=== PATIENT | female | born 1955 | race Caucasian/White ===

== ENCOUNTER 2019-01-12 01:22 | Emergency (ER) | payer OTHER ==
[2019-01-12 02:27] LABS: #Basophils 0.1 thou/uL (0.0-0.2); #Eosinphils 0.2 thou/uL (0.0-0.7); #Lymphocytes 1.7 thou/uL (1.20-3.40); #Monocytes 0.7 thou/uL (0.11-0.59); #Neutrophils 7.3 thou/uL (1.40-6.50); %Basophils 0.7 % (0.0-1.0); %Eosinophils 1.8 % (0.0-10.0); %Lymphocytes 17.2 % (21.0-51.0); %Monocytes 7.4 % (0.0-10.0); %Neutrophils 72.9 % (42.0-75.0); Mean Corpuscular HGB CONC 34.9 g/dL (32.0-36.0); Mean Corpuscular Hemoglobin 32.8 pg (27.0-31.0); Mean Corpuscular Volume 93.8 fL (78.0-98.0); Mean Platelet Volume 7.3 fL (7.4-10.4); Platelet Count 238 thou/uL (130-400); RBC Distribution Width 11.9 % (11.5-14.5); Red Blood Cell (RBC) Count 5.18 mill/uL (4.20-5.40)
[2019-01-12 02:46] LABS: ALT (SGPT) 15 U/L (8-55); AST (SGOT) 18 U/L (5-34); Albumin 4.5 g/dL (3.4-4.8); Alkaline Phosphatase 74 U/L (40-150); Anion Gap 13 mmol/L (10-20); BUN (Urea Nitrogen) 19 mg/dL (9.8-20.1); Bilirubin, Total 0.5 mg/dL (0.2-1.2); Calc. Creatinine Clearance 0 mL/min (70-130); Carbon Dioxide 25 mmol/L (23-31); Chloride 103 mmol/L (98-107); Estimated GFR-MDRD 83; Glucose 123 mg/dL (80-115); Potassium 4.3 mmol/L (3.5-5.1); Protein, Total 7.5 g/dL (6.0-8.3); Sodium 137 mmol/L (136-145)
[2019-01-12] MEDS ORDERED: Fentanyl 100 MCG/2 ML VIAL ONE ×2 (04:21→06:04)
[2019-01-12] MEDS ORDERED: Famotidine/PF 20 mg/2ml Vial ONE (04:22)
[2019-01-12] MEDS ORDERED: methylPREDNISolone Sod Succ/PF 125 MG/2 ML VIAL ONE (04:22)
[2019-01-12] MEDS ORDERED: diphenhydrAMINE 50 MG/ML VIAL ONE (04:22)
[2019-01-12] MEDS ORDERED: Ketorolac Tromethamine 30 MG/ML VIAL ONE (07:08)
--- NOTE | 2019-01-12 08:11 | ULT ---
PRELIMINARY REPORT/[facility]/EMERGENCY AFTER HOURS PROCEDURE: EXAM: US Duplex Right Lower Extremity Veins, Limited EXAM DATE/TIME: 01/12/2019 2:18 AM CLINICAL HISTORY: 63 years old, female; Pain; Leg, upper; Right TECHNIQUE: Imaging protocol: Real-time Duplex ultrasound of the Right Lower Extremity with 2-D sims scale, color Doppler flow and spectral waveform analysis. Limited exam was focused on the right lower extremity veins. COMPARISON: No relevant prior studies available. FINDINGS: Right deep veins: Unremarkable. The common femoral, femoral, proximal profunda femoral and popliteal veins are patent without thrombus. Normal Doppler waveforms. Normal compressibility and/or augmentation response. Right superficial veins: Unremarkable. Saphenofemoral junction is patent without thrombus. Soft tissues: Unremarkable. IMPRESSION: No acute findings. No evidence of deep vein thrombosis. Thank you for allowing us to participate in the care of your patient. Dictated and Authenticated by: Dash Miles MD 01/12/2019 3:09 AM Central Time ([place] & [place]) FINAL REPORT EMERGENCY AFTER HOURS RIGHT LOWER EXTREMITY VENOUS DOPPLER ULTRASOUND: HISTORY: Right lower extremity pain. TECHNIQUE: Multiple longitudinal and transverse images of the right lower extremity venous systems obtained usin g multi hertz linear array transducer. Real-time, color flow and spectral waveform Doppler analysis used to evaluate the right lower extremity venous system. FINDINGS: Images demonstrate no evidence of acute or old clot seen in the right common femoral, superficial fem oral, femoral profunda, popliteal, posterior tibial veins and right greater saphenous vein. IMPRESSION: No evidence of right lower extremity deep venous thrombosis. I concur with the dictation from [facility]. Transcribed Date/Time: 01/12/2019 8:38 AM
--- NOTE | 2019-01-12 08:39 | CT ---
CTA ABDOMEN AND PELVIS WITH CONTRAST AND 3D VOLUME RENDERING CTA RUNOFF OF BILATERAL LOWER EXTREMITIES WITH 3D VOLUME RENDERING: CLINICAL INDICATION: History of vascular disease, bypass surgery, clot. COMPARISON: Reference is made to 01/08/2017 CTA exam. FINDINGS: Partially imaged right-sided bypass is present which traverses the subcutaneous tissues of the right chest and abdomen, and is anastomosed at the right femoral vasculature. At the site of anastomosis, there is a prominent degree of stenosis with minimal contrast opacification seen. Subsequently, with in the right superficial femoral artery, there is contrast opacification with multifocal mild disease . The right popliteal artery is patent. Evaluation of the 3-vessel runoff below the level of the kn ee reveals scattered mild multifocal disease, with contrast seen to the level of the high ankle. The distal arterial structures are diminutive in caliber which does limit their assessment. As has been depicted on prior CTA, there is complete occlusion of the abdominal aorta just inferior t o the level of the renal arteries with diffuse absence of contrast to the level of the bifurcation, w ith absence of contrast within each common iliac artery. There is reconstituted flow of the right ex ternal iliac arteries. There is an absence of contrast of the left internal and external iliac arter ies and contrast is again seen within the left lower extremity beginning at the site of anastomosis n ear the expected origin of the left superficial femoral artery. The superficial femoral artery is pa tent within the mid to proximal side. at the level of the distal thigh, there are multiple small col lateralized vessels with subsequent opacification and then reconstitution at the level of the poplite al artery which is mildly diseased. There are diminutive arterial branches below the level of the le ft knee with faint contrast seen to the distal 1/3 of the leg within the anterior tibial and peroneal arteries and contrast seen to the level of the ankle within the posterior tibial artery. The incidentally imaged descending thoracic aorta again reveals a multifocal calcified and noncalcifi ed plaque, grossly stable. IMPRESSION: 1. 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 There is a prominent st enosis at the level of anastomosis within the right femoral region. Subsequently, there is mild mult ifocal disease of the right lower extremity as discussed above. 2. Multifocal disease of the left lower extremity as detailed above. POS: SCOTTY
[2019-01-12] MEDS ORDERED: ISOVUE-370 76%-LOCM 1 ML ONE (16:57)
== END 2019-01-12 07:10 | disposition home or self-care (01) ==
LOC: ERS 01:22
DX: I73.9 Peripheral vascular disease, unspecified (principal); I10 Essential (primary) hypertension; E78.5 Hyperlipidemia, unspecified; Z86.718 Personal history of other venous thrombosis and embolism; Z79.82 Long term (current) use of aspirin; Z79.899 Other long term (current) drug therapy
CPT/HCPCS: 36415; 75635; 80053; 85025; 85379; 93005; 96374; 96375; 96376; J1200; J1885; J2930; J3010; Q9966; S0028

== ENCOUNTER 2019-03-03 15:57 | Inpatient (IN) | payer OTHER ==
[~2019-03-03 15:57] MED LIST: Glycopyrrolate 0.2 MG/ML 5 ML SYRINGE ONE; Heparin 10,000 UNITS/ 10 ML VIAL ONE; Ondansetron PF 4 MG/2 ML Vial ONE; Rocuronium Bromide 10 MG/ML (10ML VIAL) ONE; Succinylcholine Chloride 20 MG/ML 10 ml SYRINGE FS ONE; ePHEDrine 50 MG/ML VIAL ONE
[2019-03-03] MEDS ORDERED: Fentanyl 100 MCG/2 ML VIAL ONE ×3 (16:10→17:32)
[2019-03-03] MEDS ORDERED: diphenhydrAMINE 50 MG/ML VIAL ONE (16:17)
[2019-03-03] MEDS ORDERED: methylPREDNISolone Sod Succ/PF 125 MG/2 ML VIAL ONE (16:17)
[2019-03-03] MEDS ORDERED: Famotidine/PF 20 mg/2ml Vial ONE (16:17)
[2019-03-03 16:31] LABS: #Basophils 0.1 thou/uL (0.0-0.2); #Eosinphils 0.3 thou/uL (0.0-0.7); #Lymphocytes 3.4 thou/uL (1.20-3.40); #Monocytes 0.7 thou/uL (0.11-0.59); #Neutrophils 4.9 thou/uL (1.40-6.50); %Basophils 0.6 % (0.0-1.0); %Eosinophils 3.3 % (0.0-10.0); %Lymphocytes 36.3 % (21.0-51.0); %Monocytes 7.5 % (0.0-10.0); %Neutrophils 52.3 % (42.0-75.0); Mean Corpuscular HGB CONC 34.8 g/dL (32.0-36.0); Mean Platelet Volume 7.2 fL (7.4-10.4); Platelet Count 297 thou/uL (130-400); RBC Distribution Width 11.8 % (11.5-14.5); Red Blood Cell (RBC) Count 5.61 mill/uL (4.20-5.40); White Blood Cell (WBC) Count 9.3 thou/uL (4.8-10.8)
[2019-03-03 16:38] LABS: Prothrombin Time 13.1 SEC (12.0-14.7)
--- NOTE | 2019-03-03 16:55 | RAD ---
PORTABLE CHEST 1 VIEW: Date; 03/03/19 Time: 1651 hours HISTORY: Pain in right leg. FINDINGS: Comparison made with exam of 01/28/11. The heart size is normal. The aorta is tortuous. The lungs are expanded without focal areas of consol idation, pneumothoraces, or pleural effusions. Surgical clips in the right upper outer chest are agai n seen. IMPRESSION: No radiographic evidence of acute cardiopulmonary process. POS: OFF
[2019-03-03 16:56] LABS: ALT (SGPT) 15 U/L (8-55); AST (SGOT) 15 U/L (5-34); Albumin 4.5 g/dL (3.4-4.8); Alkaline Phosphatase 86 U/L (40-150); Anion Gap 20 mmol/L (10-20); BUN (Urea Nitrogen) 11 mg/dL (9.8-20.1); Bilirubin, Total 0.5 mg/dL (0.2-1.2); CK (CPK) 66 U/L (29-168); Calc. Creatinine Clearance 0 mL/min (70-130); Calcium 10.1 mg/dL (7.8-10.44); Carbon Dioxide 17 mmol/L (23-31); Chloride 103 mmol/L (98-107); Estimated GFR-MDRD 75; Globulin 3.2 g/dL (2.4-3.5); Glucose 137 mg/dL (80-115); Potassium 3.4 mmol/L (3.5-5.1); Protein, Total 7.7 g/dL (6.0-8.3); Sodium 137 mmol/L (136-145)
[2019-03-03] MEDS ORDERED: Midazolam HCl 2 mg/2 ml Vial ONE ×2 (17:20→17:32)
[2019-03-03] MEDS ORDERED: Protamine Sulfate 50 MG/5 ML VIAL ONE (17:24)
[2019-03-03] MEDS ORDERED: Heparin 5,000 UNITS/ML VIAL ONE (17:24)
[2019-03-03] MEDS ORDERED: Heparin 10,000 UNITS/1 ML VIAL 30,000 UNITS in Sodium Chloride 0.9% 1,000 ML FS SCH (17:30)
[2019-03-03] MEDS ORDERED: CEFAZOLIN 1 GM VIAL ONE (20:00)
[2019-03-03] MEDS ORDERED: Ondansetron PF 4 MG/2 ML Vial IVP PRN (22:36)
[2019-03-03] MEDS ORDERED: Fentanyl 100 MCG/2 ML VIAL SLOW IVP PRN ×2 (22:36)
[2019-03-03] MEDS ORDERED: Acetaminophen 325 MG TAB PO PRN (22:36)
[2019-03-03] MEDS ORDERED: HYDROcodone/Acetaminophen 5/325 mg Tablet PO PRN (22:36)
[2019-03-03] MEDS ORDERED: Promethazine HCl 25 MG/ML VIAL SLOW IVP PRN (22:48)
[2019-03-03] MEDS ORDERED: Ondansetron HCl/PF 4 MG/2 ML Vial IVP PRN (22:48)
[2019-03-03] MEDS ORDERED: Promethazine HCl 25 MG/ML VIAL IM PRN (22:48)
--- NOTE | 2019-03-03 23:00 | RAD ---
Chest one view HISTORY: Line placement. COMPARISON: Earlier exam on the same date. FINDINGS: Tip of a left internal jugular central venous catheter overlies the superior vena cava. Med iastinum is midline with aortic calcification. [place] is partially obscured by ill-defined parenchymal opacity. No evidence of pneumothorax. Metallic clips over the right upper chest. IMPRESSION: Left internal jugular central venous catheter is in good radiographic position. Right basilar infiltrate, partially obscuring the right hemidiaphragm.
[2019-03-03] MEDS ORDERED: ceFAZolin 1 GM/D5W 1 GM in Premix Bag 1 BAG IVPB SCH (23:45)
[2019-03-04] MEDS: Ketorolac Tromethamine 30 MG/ML VIAL IVP SCH ×4 (00:54→18:06)
[2019-03-04] MEDS: Sodium Chloride 0.9% 1,000 ML IV SCH ×2 (00:55→12:29)
--- NOTE | 2019-03-04 02:35 | HP ---
CHIEF COMPLAINT: Right leg pain. HISTORY OF PRESENT ILLNESS: The patient is a 63-year-old woman with extensive vascular history, who about a month ago began claudicating again, and then today had sudden onset of excruciating pain in her right lower extremity. Her right leg went pale and she presented to the emergency room essentially right away and her leg was already beginning to mottle during her initial interview. PAST MEDICAL HISTORY: Significant for hypercholesterolemia, perforated sigmoid diverticulitis, remote history of TIA manifested as dysarthria. Her peripheral vascular history is notable for initially undergoing right axillobifemoral graft in 08/2010 in lieu of an aortobifemoral graft because of the presence of a colostomy following a Renay's procedure for perforated diverticulitis. In October of 2010, the graft thrombosed and she underwent graft thrombectomy and left femoral popliteal bypass, but in November due to infection, the crossover limb and the left femoral-popliteal grafts were removed. In August 2012, she underwent thrombectomy of the graft, and by report of below-knee right femoral-popliteal bypass. In January of 2017, she underwent brachial thromboembolectomy, and just a few days later, underwent graft thrombectomy and revision of the distal anastomosis taking the patch down onto the SFA. HOME MEDICATIONS: 1. Zocor 80 mg a day. 2. Baby aspirin a day. 3. Plavix 75 mg a day. 4. She is chronically maintained on Augmentin. SOCIAL HISTORY: She quit smoking. REVIEW OF SYSTEMS: Negative for any chest pain. PHYSICAL EXAMINATION: GENERAL: She is in extreme distress due to pain and having difficult time even holding stool. VITAL SIGNS: Heart rate 74, blood pressure 166/79, temperature 97.6. CHEST: She has clear breath sounds. HEART: Regular rate and rhythm. EXTREMITIES: No pulse in her axillofemoral graft. No pulse in either groin. Her left foot is pink and fairly warm. Her right lower extremity is quite pale with dusky nail beds and flat veins in the feet and she is beginning to mottle in the thigh. LABORATORY DATA: CT angiography from January suggests a thrombosis of the axillofemoral graft at that time with stenosis at the common femoral bifurcation on the right side. IMPRESSION AND PLAN: Acute ischemia. We anticipate that if her graft has really been thrombosed for about a month and it is on the order of 7 years old that it is apt to just simply need to be replaced rather than thrombectomized. Job ID: [id number]
[2019-03-04 02:45] VITALS: BMI 26.9
--- NOTE | 2019-03-04 03:51 | OP ---
DATE OF PROCEDURE: 03/03/2019 PROCEDURE PERFORMED: Emergent redo right axillofemoral bypass with 8 mm externally reinforced [place] Propaten graft, bovine pericardial patch profundoplasty, and femoral thrombectomy. PREOPERATIVE DIAGNOSIS: Peripheral vascular disease, status post right axillofemoral bypass with acutely ischemic right lower extremity. POSTOPERATIVE DIAGNOSIS: Peripheral vascular disease, status post right axillofemoral bypass with acutely ischemic right lower extremity. ANESTHESIA: General endotracheal anesthesia. INDICATIONS: The patient is a 63-year-old woman with an infrarenal aortic occlusion, who several years ago in the face of a recent Renay's procedure, underwent revascularization in the form of right axillobifemoral graft to crossover limb and a femoral-popliteal graft done on the left side at the time of graft thrombectomy, had to be removed because of infection, and she has had thrombectomies and revisions of her right axillofemoral graft. She began to claudicate again about a month ago, and today she developed sudden onset of excruciating pain with clinical findings consistent with ischemia. FINDINGS: Thrombosed graft, extensive amount of thrombus within the SFA, combination of plaque and pseudo intimal hyperplasia occluding the profunda. Postoperatively, the foot was pink with good capillary refill and a Doppler pulse in the posterior tibial. NARRATIVE REPORT: After informed consent was obtained, the patient was taken to the operating room, placed in supine position on the operating table. After the induction of general anesthesia and placement of left internal jugular line by the anesthesiologist, rolls were placed transversely under the shoulder and longitudinally under the right side and the patient's right arm was tucked. Her torso, groins, and lower extremities were prepped and draped in sterile fashion. An incision was made sharply through the scar in the right groin and the electrocautery was used to carry that dissection through the subcutaneous tissue. The graft was identified and the dissection was carried down onto the SFA. An extensive sharp dissection was undertaken to isolate the graft in the common femoral artery as much as feasible and then to dissect down, identify the superficial femoral and the profunda branches. When that had been accomplished, an incision was made through the previous right upper chest incision. The fibers of the pectoralis were divided along the course of the fibers, and a combination of sharp and electrocautery dissection was used to expose the graft and the axillary artery, dissecting the axillary and subclavian veins off the artery to allow for adequate proximal control. The patient was heparinized, and while heparin circulated, a tunneling device was passed deep to the pectoralis musculature down to the groin and an 8 mm externally reinforced [place] Propaten graft was passed from the groin up to the axillary incision. Proximal and distal control was established on the graft in the groin as well as the united [place] vasculature. A longitudinal graftotomy was made in the londono of the graft and local thrombus was extracted with a [place], communication with the profunda could not be identified. The profunda was separately opened with an 11 blade scalpel and that arteriotomy extended up onto the londono of the graft at its graftotomy. Probing the profunda is possible to identify the tract of the profunda up to the common femoral, and an 11 blade scalpel was used to open it. A large bovine pericardial patch was then tailored in a teardrop fashion and anastomosed taking the tip down onto the profunda and then around onto the origin of the SFA that had been thrombectomized with a #4 Madhu and then up to the proximal apex on the graft londono. The patch was then tailored and the suture line completed along the lateral aspect. Back bleeding was allowed from the profunda and the thrombectomized SFA. Attention was then turned to the axillary artery. It was isolated and the anterior portion of the suture line of the previous anastomosis was opened. The graft was trimmed and beveled, and anastomosed there end-to-side. The united [place] artery was rather friable and tended to dissect, the suture line was run in such a manner as to tack together the layers of the [place] vessel. The graft flushed well and the suture line had been completed. The slack was adjusted and then vascular control reestablished on the femoral bifurcation of the groin. An 11 blade scalp was used to make an incision in the pericardial patch and the graft was trimmed to length with a bevel and anastomosed there end-to-side. The united [place] vasculature and the graft were flushed, and suture line secured, and flow is allowed 1st retrograde into the femoral system and then of the profunda and finally into the SFA. Protamine was administered. When hemostasis was adequate, the incisions were irrigated. The chest wall incision was closed using 2-0 Vicryl for the musculature and subcutaneous tissue in running nylon skin suture. The groin incision was closed in deep and superficial subcutaneous with Vicryl and nylon skin suture. The foot was pink with good capillary refill. The saphenous vein was full and refilled briskly and there was a dopplerable posterior tibial pulse. The wounds were dressed. The patient was awakened and extubated in operating room and taken to the recovery area in stable condition. Her postoperative chest x-ray showed the left IJ passing through the innominate into the superior cava and there being no pneumothorax. Job ID: [id number]
[2019-03-04 05:45] LABS: #Lymphocytes 0.9 thou/uL (1.20-3.40); #Monocytes 0.6 thou/uL (0.11-0.59); #Neutrophils 11.7 thou/uL (1.40-6.50); %Basophils 0.1 % (0.0-1.0); %Eosinophils 0.1 % (0.0-10.0); %Lymphocytes 6.7 % (21.0-51.0); %Monocytes 4.4 % (0.0-10.0); %Neutrophils 88.7 % (42.0-75.0); Hemoglobin 14.3 g/dL (12.0-16.0); Mean Corpuscular HGB CONC 34.2 g/dL (32.0-36.0); Mean Corpuscular Hemoglobin 32.3 pg (27.0-31.0); Mean Corpuscular Volume 94.2 fL (78.0-98.0); Mean Platelet Volume 7.2 fL (7.4-10.4); Platelet Count 223 thou/uL (130-400); RBC Distribution Width 11.8 % (11.5-14.5); Red Blood Cell (RBC) Count 4.43 mill/uL (4.20-5.40); White Blood Cell (WBC) Count 13.2 thou/uL (4.8-10.8)
[2019-03-04 05:58] LABS: Anion Gap 10 mmol/L (10-20); BUN (Urea Nitrogen) 7 mg/dL (9.8-20.1); Calc. Creatinine Clearance 95 mL/min (70-130); Calcium 8.7 mg/dL (7.8-10.44); Carbon Dioxide 23 mmol/L (23-31); Chloride 104 mmol/L (98-107); Estimated GFR-MDRD Greater than 90; Glucose 135 mg/dL (80-115); Potassium 4.2 mmol/L (3.5-5.1); Sodium 133 mmol/L (136-145)
[2019-03-04] MEDS ORDERED: Clopidogrel Bisulfate 75 MG TAB PO SCH (09:00)
[2019-03-04] MEDS ORDERED: Aspirin Chewable 81 MG TAB PO SCH (09:00)
[2019-03-04] MEDS: Clopidogrel Bisulfate 75 MG TAB PO SCH (09:23)
[2019-03-04] MEDS: Lactinex Tablet PO SCH ×2 (09:23→21:02)
[2019-03-04] MEDS: Aspirin Chewable 81 MG TAB PO SCH (09:23)
[2019-03-04] MEDS ORDERED: Amoxicillin/Potassium Clav 875 MG TAB PO SCH (14:00)
--- NOTE | 2019-03-04 15:47 | CON ---
DATE OF CONSULTATION: 03/04/2019 HISTORY OF PRESENT ILLNESS: Ms. Gurrola is a 63-year-old female about to be her for 50 years. He went to the store for her yesterday since she has macular degeneration and came and family told him that an ambulance being called because of leg pain. She apparently very quickly went to the OR for a redo right axillofemoral bypass with femoral thrombectomy. She says she is doing well. Her pain was gone when she woke up. PAST MEDICAL HISTORY: Remarkable for; 1. TIA. 2. History of diverticulitis with perforation. 3. History of lipid disorder. 4. History of a right axillobifemoral graft in 2009. 5. History of a colostomy after her perforation. 6. History of a left femoral-popliteal bypass in 2010 after a graft thrombosed. 7. History of an infection in 2010 leading to removal of the limb in the left femoral-popliteal grafts. 8. History of thrombectomy of the graft in 2011 and below the knee, right femoral-popliteal bypass. 9. History of brachial thromboembolectomy in 2016 and then just a few days later , she had a graft thrombectomy revision of the distal anastomosis taking the patch down to the superficial femoral artery. SOCIAL HISTORY: She is a former smoker. Nondrinker and nondrug user. MEDICATIONS: Prior to admission, she is on; 1. Zocor. 2. Aspirin. 3. Plavix. 4. Apparently, she is chronically maintained on Augmentin. FAMILY HISTORY: Negative for lung disease in early age. REVIEW OF SYSTEMS: Ten-point review of systems completed, otherwise negative. PHYSICAL EXAMINATION: GENERAL: She is in no distress. VITAL SIGNS: Heart rate is 80, blood pressure is 107/52, respiratory rate is in the teens, oximetry is 92 to 93. HEENT: Pupils are equal. Sclerae are anicteric. NECK: Supple. LUNGS: Clear. HEART: Regular rhythm. S1 and S2 normal. ABDOMEN: Soft and nontender. EXTREMITIES: Her feet are warm with pulses. IMPRESSION AND PLAN: Status post multiple vascular procedures with an emergent axillofemoral bypass to right lower extremity. I saw her back in 2017, reviewing old records. Fortunately, smoking is not an issue at this point in time. She will need to continue to be followed closely with vascular surgeons. Hopefully, she will be a candidate to move out of the critical care unit today or tomorrow. TIME SPENT: This is a 70-minute consult, with greater than 50% of time was spent on the unit coordinating care. Job ID: [id number] [email or web address]
[2019-03-04] MEDS ORDERED: Non-Formulary Item 1 EACH (Simvastatin [Zocor] 80 MG) PO SCH (21:00)
[2019-03-04] MEDS ORDERED: Atorvastatin Calcium 40 MG TAB PO SCH (21:00)
[2019-03-04] MEDS: Amoxicillin/Potassium Clav 875 MG TAB PO SCH (21:02)
[2019-03-05] MEDS: HYDROcodone/Acetaminophen 5/325 mg Tablet PO PRN ×2 (00:35→06:19)
[2019-03-05] MEDS: Lactinex Tablet PO SCH (09:42)
[2019-03-05] MEDS: Aspirin Chewable 81 MG TAB PO SCH (09:42)
[2019-03-05] MEDS: Clopidogrel Bisulfate 75 MG TAB PO SCH (09:42)
[2019-03-05] MEDS: Amoxicillin/Potassium Clav 875 MG TAB PO SCH (09:42)
--- NOTE | 2019-03-05 15:25 | PRG ---
DATE OF SERVICE: 03/05/2019 SUBJECTIVE: Monique Gurrola says she aches all over, but other than that, feels great. She has no leg pain. OBJECTIVE: VITAL SIGNS: She is afebrile, heart rate 74, respiratory rate 16, oximetry is 94% on room air, and blood pressure 102/55. LUNGS: Clear. HEART: Regular rhythm. ABDOMEN: Soft. LABORATORY DATA: There is no new lab today. IMPRESSION AND PLAN: 1. Status post revascularization of her right lower extremity after an acute thrombosis, clinically doing well. 2. Long history of tobacco, abstinent for many years with no clinical evidence of bronchospasm or chronic obstructive pulmonary disease. We will continue to follow while she is in the hospital. Job ID: [id number]
[2019-03-05] MEDS ORDERED: traMADol HCl 50 MG TAB PO PRN ×2 (18:50)
--- NOTE | 2019-03-05 19:10 | DIS ---
DATE OF ADMISSION: 03/03/2019 DATE OF DISCHARGE: 03/05/2019 PRINCIPAL DIAGNOSES: Peripheral vascular disease with acute right lower extremity ischemia. PROCEDURES PERFORMED: Emergent redo right axillofemoral bypass with externally reinforced 8 mm [place] Propaten graft, bovine pericardial patch, profundoplasty and femoral thrombectomy on 03/03/2019. HISTORY OF PRESENT ILLNESS AND HOSPITAL COURSE: The patient is a 63-year-old woman with an extensive vascular history, having undergone a right axillobifemoral bypass several years ago for aortoiliac disease in the phase of a colostomy. Her Renay's procedure has since been reversed. However, she has required multiple interventions and revisions of her graft and she presented with sudden onset of severe pain with pallor in that leg and while in the emergency room, began developing mottling. She had no detectable pulse in the foot or in the graft and she was taken to the operating room for revascularization. An extensive amount of fresh thrombus was found in the superficial femoral artery. Small profunda was generously patched with bovine pericardium to allow for secure flow into the profunda system through a relatively large graft and in anticipation of considerable pseudo-intimal hyperplasia on this graft that had been present for several years. A new 8 mm axillofemoral graft was done. Postoperatively, she had palpable pulses in her foot and dramatic relief of her pain. She was transferred out of the intensive care unit on postoperative day 1 and on postoperative day 2, she was getting around well with minimal pain. She is being discharged home now to resume her home medications and she has been given a prescription for tramadol for pain. Job ID: [id number]
[2019-03-05 21:04] VITALS: BP 99/63; TEMP 98.2
--- NOTE | 2019-03-07 14:04 | EKG ---
Test Reason : Blood Pressure : / mmHG Vent. Rate : 071 BPM Atrial Rate : 071 BPM P-R Int : 102 ms QRS Dur : 082 ms QT Int : 458 ms P-R-T Axes : 100 035 070 degrees QTc Int : 497 ms Sinus rhythm with short MS Septal infarct , age undetermined Abnormal ECG Confirmed by KENNY SALMERON DO ([id number]), acquisitions editor MACK AHUMADA ([id number]) on 03/07/2019 2:04:16 PM Referred By: Confirmed By:KENNY SALMERON DO
== END 2019-03-05 20:55 | disposition home or self-care (01) | DRG 253 ==
LOC: ERS 15:57 → CCU 17:44 → SDC/OP 19:35 → CCU 20:34 → SURG A 03-04 14:25
PROVIDERS: ADMIT Thoracic Surgery (Cardiothoracic Vascular Surgery); ATTEND Thoracic Surgery (Cardiothoracic Vascular Surgery)
PROC: 04UK0KZ Supplement Right Femoral Artery with Nonautologous Tissue Substitute, Open Approach (ICD-10-PCS; principal; 2019-03-03)
PROC: 03150J9 Bypass Right Axillary Artery to Right Lower Leg Artery with Synthetic Substitute, Open Approach (ICD-10-PCS; 2019-03-03)
DX: T82.868A Thrombosis due to vascular prosthetic devices, implants and grafts, initial encounter (principal); I74.3 Embolism and thrombosis of arteries of the lower extremities; I10 Essential (primary) hypertension; E78.00 Pure hypercholesterolemia, unspecified; Z86.73 Personal history of transient ischemic attack (TIA), and cerebral infarction without residual deficits; Z79.82 Long term (current) use of aspirin; Z79.899 Other long term (current) drug therapy; Z79.02 Long term (current) use of antithrombotics/antiplatelets; Z87.891 Personal history of nicotine dependence; Y83.2 Surgical operation with anastomosis, bypass or graft as the cause of abnormal reaction of the patient, or of later complication, without mention of misadventure at the time of the procedure
CPT/HCPCS: 36415; 71045; 80048; 80053; 82550; 85025; 85610; 85730; 86850; 86900; 86901; 93005; 96374; 96375; J0690; J1200; J1644; J1885; J2250; J2405; J2720; J2930; J3010; J3490; J7050; S0028

== ENCOUNTER 2020-06-18 07:22 | Outpatient (CLI) | payer MEDICARE, OTHER ==
[2020-06-19 15:23] LABS: SARS-CoV-2 MS2 Positive; SARS-CoV-2 N Gene Negative; SARS-CoV-2 S Gene Negative; SARS-CoV-2 by NAA Not Detected (NotDetected); SARS-CoV-2 orf1ab Negative
== END 2020-06-18 07:23 | disposition home or self-care (01) ==
LOC: LABBT 07:22
PROVIDERS: ATTEND Thoracic Surgery (Cardiothoracic Vascular Surgery)
DX: Z20.828 Contact with and (suspected) exposure to other viral communicable diseases (principal)
CPT/HCPCS: 87635; U0003

== ENCOUNTER 2020-06-18 12:00 | Inpatient (IN) | payer MEDICARE, OTHER ==
[2020-06-18 16:02] LABS: #Basophils 0.1 thou/uL (0.0-0.2); #Eosinphils 0.2 thou/uL (0.0-0.7); #Lymphocytes 2.1 thou/uL (1.20-3.40); #Monocytes 0.6 thou/uL (0.11-0.59); #Neutrophils 4.1 thou/uL (1.40-6.50); %Basophils 0.7 % (0.0-1.0); %Eosinophils 3.4 % (0.0-10.0); %Lymphocytes 29.5 % (21.0-51.0); %Neutrophils 57.5 % (42.0-75.0); Hemoglobin 15.9 g/dL (12.0-16.0); Mean Corpuscular HGB CONC 33.8 g/dL (32.0-36.0); Mean Corpuscular Hemoglobin 31.7 pg (27.0-31.0); Mean Corpuscular Volume 93.9 fL (78.0-98.0); Mean Platelet Volume 8.1 fL (7.4-10.4); Platelet Count 220 thou/uL (130-400); RBC Distribution Width 12.4 % (11.5-14.5); Red Blood Cell (RBC) Count 5.01 mill/uL (4.20-5.40); White Blood Cell (WBC) Count 7.1 thou/uL (4.8-10.8)
[2020-06-18 16:13] LABS: Anion Gap 11 mmol/L (10-20); BUN (Urea Nitrogen) 10 mg/dL (9.8-20.1); Calc. Creatinine Clearance 0 mL/min (70-130); Calcium 9.2 mg/dL (7.8-10.44); Carbon Dioxide 24 mmol/L (23-31); Chloride 102 mmol/L (98-107); Estimated GFR-MDRD 85; Glucose 81 mg/dL (80-115); Potassium 4.4 mmol/L (3.5-5.1); Sodium 133 mmol/L (136-145)
[2020-06-23] MEDS ORDERED: Albumin 5% 500 ML ONE (06:39)
[2020-06-23] MEDS ORDERED: Papaverine 60 MG/2 ML VIAL ONE ×2 (06:58→10:34)
[2020-06-23] MEDS ORDERED: Heparin 10,000 UNITS/1 ML VIAL 30,000 UNITS in Sodium Chloride 0.9% 1,000 ML FS SCH (07:00)
[2020-06-23] MEDS ORDERED: Fentanyl 250 MCG/5 ML VIAL ONE (07:29)
[2020-06-23] MEDS ORDERED: niCARdipine 25 MG in Sodium Chloride 0.9% 250 ML 250 ML IVPB PRN (07:38)
[2020-06-23] MEDS ORDERED: Hetastarch 6% 500 ML 500 ML IVPB PRN ×2 (07:38→07:41)
[2020-06-23] MEDS ORDERED: Fentanyl 100 MCG/2 ML VIAL SLOW IVP PRN ×4 (07:38→07:41)
[2020-06-23] MEDS ORDERED: Mag-Al 1200 mg/1200 mg/30 ML UDCUP PO PRN ×2 (07:38→07:41)
[2020-06-23] MEDS ORDERED: Post-Op Insulin Drip Protocol IVPB ONE ×2 (07:38→07:41)
[2020-06-23] MEDS ORDERED: Nitroglycerin 50 MG/250 ML BOT 250 ML IVPB PRN ×2 (07:38→07:41)
[2020-06-23] MEDS ORDERED: Potassium Chloride 20 MEQ/100 ML PREMIX BAG IVPB PRN ×2 (07:38→07:41)
[2020-06-23] MEDS ORDERED: Morphine 2 MG/ML VIAL SLOW IVP PRN ×2 (07:38→07:41)
[2020-06-23] MEDS ORDERED: Bisacodyl 5 MG TAB PO PRN ×2 (07:38→07:41)
[2020-06-23] MEDS ORDERED: Bisacodyl 10 MG SUPP PR PRN ×2 (07:38→07:41)
[2020-06-23] MEDS ORDERED: Guaifenesin DM 100-10/5 ML UDCUP PO PRN ×2 (07:38→07:41)
[2020-06-23] MEDS ORDERED: Ondansetron PF 4 MG/2 ML Vial IVP PRN ×2 (07:38→07:41)
[2020-06-23] MEDS ORDERED: Norepinephrine 8 MG/0.9% NS 250 ML IVPB PRN (07:38)
[2020-06-23] MEDS ORDERED: hydrALAZINE 20 MG/ML VIAL SLOW IVP PRN ×2 (07:38→07:41)
[2020-06-23] MEDS ORDERED: HYDROcodone/Acetaminophen 5/325 mg Tablet PO PRN ×3 (07:38→07:41)
[2020-06-23] MEDS ORDERED: Acetaminophen 325 MG TAB PO PRN ×2 (07:38→07:41)
[2020-06-23] MEDS ORDERED: Promethazine HCl 25 MG/ML VIAL IM PRN ×2 (07:38→07:41)
--- NOTE | 2020-06-23 07:38 | RAD ---
EXAM: Chest PA and lateral: HISTORY: Type of exam. COMPARISON: 03/03/2019 FINDINGS: Heart: Normal cardiac silhouette Aorta: Atherosclerotic Pulmonary vessels: Normal Costophrenic angles: Costophrenic angles are clear. Lungs: Hyperinflation with chronic changes. Stable surgical clips project over the right lung apex. Pneumothorax: No pneumothorax Osseous structures: No osseous abnormalities IMPRESSION: 1. No acute cardiopulmonary process 2. Atherosclerosis.
[2020-06-23] MEDS ORDERED: niCARdipine 25 MG in Sodium Chloride 0.9% 250 ML 240 ML IVPB PRN (07:41)
[2020-06-23] MEDS ORDERED: Dextrose 50% Abboject 50 ML SYRINGE SLOW IVP PRN (08:30)
[2020-06-23] MEDS ORDERED: HUMULIN R 100 UNITS in Sodium Chloride 0.9% 100 ML IVPB SCH (08:30)
[2020-06-23] MEDS ORDERED: Dextrose 5% in Water 1,000 ML IV PRN (08:30)
[2020-06-23] MEDS ORDERED: Aspirin Chewable 81 MG TAB PO SCH (09:00)
[2020-06-23] MEDS ORDERED: Famotidine/PF 20 mg/2ml Vial SLOW IVP SCH (09:00)
[2020-06-23] MEDS ORDERED: CEFAZOLIN 1 GM VIAL ONE ×2 (10:00→10:52)
[2020-06-23] MEDS ORDERED: Heparin 5,000 UNITS/ML VIAL ONE (10:34)
[2020-06-23] MEDS ORDERED: Cardioplegic Soln 1,000 ML BAG ONE (10:34)
[2020-06-23] MEDS ORDERED: Thrombin 5000 UNITS/5 ML VIAL ONE (10:34)
[2020-06-23] MEDS ORDERED: Aminocaproic Acid 5 GM/20 ML VIAL ONE (10:34)
[2020-06-23] MEDS ORDERED: PROPOFOL 200 MG/20 ML VIAL ONE (10:34)
[2020-06-23] MEDS ORDERED: Rocuronium Bromide 10 MG/ML (10ML VIAL) ONE (10:34)
[2020-06-23] MEDS ORDERED: Vecuronium 10 MG VIAL ONE (10:34)
[2020-06-23] MEDS ORDERED: Calcium Chloride 1 GM/10 ML Abboject SYRINGE ONE (10:34)
[2020-06-23] MEDS ORDERED: Albumin 25% 25 GM/100 ML BOT ONE (10:34)
[2020-06-23] MEDS ORDERED: Sodium Bicarb 50 MEQ/50 ML Abboject 8.4% SYRINGE ONE (10:34)
[2020-06-23] MEDS ORDERED: Mannitol 12.5 GM/50 ML ONE (10:34)
[2020-06-23] MEDS ORDERED: Lidocaine 2% PF 100 mg/5 ml Syringe ONE (10:34)
[2020-06-23] MEDS ORDERED: Heparin 30,000 units/30 ml VIAL ONE (10:34)
[2020-06-23] MEDS ORDERED: Potassium Chloride 60 MEQ/30 ML VIAL ONE (10:34)
[2020-06-23] MEDS ORDERED: PHENYLEPHRINE-NS 100 MCG/ML 10 ML SYRINGE ONE ×2 (10:34→11:11)
[2020-06-23] MEDS ORDERED: Norepinephrine 4 MG/4 ML VIAL ONE (12:14)
[2020-06-23] MEDS ORDERED: Midazolam HCl 2 mg/2 ml Vial ONE ×2 (13:11→14:49)
[2020-06-23] MEDS ORDERED: Fentanyl 100 MCG/2 ML VIAL ONE ×2 (13:11→14:49)
[2020-06-23 14:20] LABS: Base Excess (BEa) -5.6 mEq/L (-2.0 to +3.0); CO2 Tension 39.8 mmHg (35.0-45.0); Calcium, Ionized (arterial) 1.08 mmol/L (1.12-1.30); Carboxyhemoglobin (COHb) 0.4 gm% (0.0-3.0); Hemoglobin (Hb) 13.9 g/dL (12.0-16.0); O2 Tension (PaO2), arterial 110.4 mmHg (> 80.0); Potassium - ABG Lab 4.01 mmol/L (3.70-5.30); pH, Arterial 7.32 (7.35-7.45)
[2020-06-23 14:21] LABS: Puncture Site ALINE
--- NOTE | 2020-06-23 14:24 | RAD ---
Portable frontal chest radiograph: 06/23/2020 COMPARISON: 03/03/2019 and 06/23/2020 HISTORY: Evaluate chest following open heart surgery FINDINGS: New midline sternotomy wires are present. There is a left vascular catheter with distal tip overlying the region of the cavoatrial junction. There is a endotracheal tube projecting approximately 2.3 cm proximal to the tano. There are postoperative clips overlying the mediastinum consistent with recent CABG. Drainage catheters overlie the lower midline mediastinum. Stable postoperative clips overlie the right axillary region. There is new hazy nonspecific airspace disease in both lung bases, right greater than left. IMPRESSION: Lines and tubes as detailed above. Hazy new opacity in the lung bases, likely on the basi s of volume loss. Infiltrate or aspiration cannot be fully excluded. Follow-up advised.
[2020-06-23 14:29] LABS: Hemoglobin 13.5 g/dL (12.0-16.0)
[2020-06-23 14:31] LABS: #Eosinphils 0.1 thou/uL (0.0-0.7); #Lymphocytes 1.1 thou/uL (1.20-3.40); #Monocytes 0.6 thou/uL (0.11-0.59); #Neutrophils 8.6 thou/uL (1.40-6.50); %Basophils 0.1 % (0.0-1.0); %Eosinophils 0.8 % (0.0-10.0); %Lymphocytes 10.7 % (21.0-51.0); %Neutrophils 82.4 % (42.0-75.0); Hemoglobin 13.5 g/dL (12.0-16.0); Mean Corpuscular HGB CONC 33.9 g/dL (32.0-36.0); Mean Corpuscular Hemoglobin 32.2 pg (27.0-31.0); Mean Corpuscular Volume 94.8 fL (78.0-98.0); RBC Distribution Width 12.2 % (11.5-14.5); Red Blood Cell (RBC) Count 4.19 mill/uL (4.20-5.40); White Blood Cell (WBC) Count 10.4 thou/uL (4.8-10.8)
[2020-06-23 14:34] VITALS: BMI 25.0
[2020-06-23 14:34] LABS: INR-International Normal Ratio 1.5; PTT 30.7 sec (22.9-36.1); Prothrombin Time 18.2 sec (12.0-14.7)
[2020-06-23] MEDS: Sodium Chloride 0.9% 1,000 ML IV SCH (14:35)
[2020-06-23] MEDS: Docusate 100 MG CAP PO SCH ×2 (14:42→21:51)
[2020-06-23] MEDS: Clopidogrel Bisulfate 75 MG TAB PO SCH (14:42)
[2020-06-23] MEDS: Aspirin 325 MG TAB PO SCH (14:42)
[2020-06-23] MEDS: Amoxicillin/Potassium Clav 875 MG TAB PO SCH ×2 (14:42→21:51)
[2020-06-23] MEDS: Ketorolac Tromethamine 30 MG/ML VIAL IVP SCH ×2 (14:43→17:26)
[2020-06-23] MEDS: Lisinopril 5 MG TAB PO SCH ×2 (14:43→21:51)
[2020-06-23] MEDS: Lactinex Tablet PO SCH (14:43)
[2020-06-23] MEDS: Famotidine/PF 20 mg/2ml Vial SLOW IVP SCH ×2 (14:43→21:51)
[2020-06-23 14:49] LABS: Anion Gap 10 mmol/L (10-20); BUN (Urea Nitrogen) 9 mg/dL (9.8-20.1); Calc. Creatinine Clearance 86 mL/min (70-130); Calcium 7.2 mg/dL (7.8-10.44); Carbon Dioxide 21 mmol/L (23-31); Chloride 112 mmol/L (98-107); Estimated GFR-MDRD Greater than 90; Glucose 147 mg/dL (80-115); Potassium 4.1 mmol/L (3.5-5.1); Sodium 139 mmol/L (136-145)
[2020-06-23 14:51] LABS: Mean Platelet Volume 7.3 fL (7.4-10.4); Platelet Count 106 thou/uL (130-400); Platelet Morphology Comment Appears Decreased; RBC Morphology Normal
[2020-06-23 17:32] LABS: Actual Bicarbonate (HCO3a) 19.6 mEq/L (22-28); Base Excess (BEa) -6.2 mEq/L (-2.0 to +3.0); CO2 Tension 39.9 mmHg (35.0-45.0); Calcium, Ionized (arterial) 1.01 mmol/L (1.12-1.30); Carboxyhemoglobin (COHb) 0.3 gm% (0.0-3.0); O2 Tension (PaO2), arterial 106.7 mmHg (> 80.0); Potassium - ABG Lab 4.05 mmol/L (3.70-5.30); pH, Arterial 7.31 (7.35-7.45)
--- NOTE | 2020-06-23 17:32 | EKG ---
Test Reason : PREOP Blood Pressure : / mmHG Vent. Rate : 054 BPM Atrial Rate : 054 BPM P-R Int : 168 ms QRS Dur : 072 ms QT Int : 454 ms P-R-T Axes : 074 041 049 degrees QTc Int : 430 ms Sinus bradycardia Otherwise normal ECG No previous ECGs available Confirmed by DR. Iman COPPOLA ([id number]) on 06/23/2020 5:31:57 PM Referred By: ZAYRA Confirmed By:DR. Iman COPPOLA
--- NOTE | 2020-06-23 17:34 | EKG ---
Test Reason : POST CABG Blood Pressure : / mmHG Vent. Rate : 093 BPM Atrial Rate : 093 BPM P-R Int : 142 ms QRS Dur : 066 ms QT Int : 390 ms P-R-T Axes : 080 058 084 degrees QTc Int : 484 ms Normal sinus rhythm Low voltage QRS Nonspecific ST abnormality Abnormal ECG When compared with ECG of 23-JUN-2020 07:02, (Unconfirmed) Vent. rate has increased BY [address] now depressed in Anterior leads QT has lengthened Confirmed by DR. Iman COPPOLA ([id number]) on 06/23/2020 5:33:35 PM Referred By: ZAYRA Confirmed By:DR. Iman COPPOLA
[2020-06-23 17:38] LABS: ALV-art Gradient 128.625 mmHg (0-20); Puncture Site ALINE
--- NOTE | 2020-06-23 18:24 | CON ---
DATE OF CONSULTATION: 06/23/2020 REASON FOR CONSULTATION: Status post CABG. PRIMARY TOBACCO HANGER: Amos Hudson MD. HISTORY OF PRESENT ILLNESS: Ms. Gurrola is a very pleasant 64-year-old white female, who comes to the hospital for a planned bypass surgery which she had. She has significant peripheral vascular disease, treated by Dr. Liang in the past, more recently by Dr. Torres. She was complaining of shortness of breath, had a stress test that showed ischemia, so she underwent heart catheterization that showed severe multivessel disease, so she was referred back to Dr. Torres for consideration of bypass surgery. She had this performed earlier today. She had very poor veins and a very small posterolateral that was not able to be bypassed, so she had a DAILY to the LAD, a vein graft to an OM1, and a free radial to an OM2. On my evaluation, she is waking up and coming out of sedation, waking up appropriately, following commands and is on sedation protocol to try to extubate her in the next 30 minutes to an hour. PAST MEDICAL HISTORY: 1. Peripheral vascular disease. 2. Coronary artery disease. 3. History of stroke. 4. Hypertension. 5. GERD. 6. Hyperlipidemia. 7. History of diastolic heart failure. 8. Moderate carotid artery disease. SURGICAL HISTORY: 1. Bilateral aortofemoral bypass. 2. Left leg bypass is gone due to an infection. 3. Graft replacement for acute limb ischemia in February of last year. 4. CABG x3 as above. FAMILY HISTORY: Mother of an PR. Father had liver cirrhosis. Siblings of cardiovascular disease at early ages. SOCIAL HISTORY: Former smoker, none for 5 years. No alcohol. No drugs. ALLERGIES: IODINE. REVIEW OF SYSTEMS: Unobtainable as the patient is intubated at this time. OUTPATIENT MEDICATIONS: Include, 1. Plavix 75 mg a day. 2. Aspirin 81 a day. 3. Amoxicillin 875 mg twice a day. 4. Atorvastatin 80 mg at bedtime. 5. Prednisone for her dye allergy. 6. Lisinopril 5 mg twice a day. PHYSICAL EXAMINATION: VITAL SIGNS: Temperature 97.7, pulse 79, respiratory rate 20, saturating 100% on 40% FiO2, blood pressure 93/59. GENERAL: Awake, following commands, but remains intubated. HEENT: Normocephalic, atraumatic. NECK: Supple. LUNGS: Have coarse anterior sounds. CARDIOVASCULAR: S1 and S2. 3-component rub consistent with recent bypass. ABDOMEN: Soft. EXTREMITIES: Trace edema. SKIN: Warm and dry. LABORATORY DATA: Laboratory work was reviewed. White count is 10; hemoglobin of 13, post surgery 13.5, before it was 15.9; hematocrit of 39; platelet count of 106. Coags, INR was 1.5 this afternoon. ABG was reviewed. Chemistries were reviewed, normal BUN and creatinine at 9 and 0.62, GFR greater than 90, normal glucose, calcium in the . ASSESSMENT: 1. Status post CABG x3 with DAILY to the LAD, vein graft to an OM1 and a free radial to an OM2. 2. Severe peripheral vascular disease. 3. History of cerebrovascular accident. PLAN: 1. Continue supportive care. 2. Extubation later today if she is doing very well on her extubation protocol. 3. Aspirin and statin for life. Restart Plavix when safe from the surgical perspective. 4. We will start treating her blood pressure once her blood pressure allows with ELLA inhibitors and beta blockers, currently borderline low. Thank you for letting us to evaluate this patient. We will follow. Job ID: [id number]
--- NOTE | 2020-06-23 20:08 | OP ---
DATE OF PROCEDURE: 06/23/2020 PROCEDURES PERFORMED: Coronary artery bypass grafting x3 with left internal mammary artery to the mid LAD, reverse greater saphenous vein graft from the aorta to the first obtuse marginal, and left radial artery from the aorta to the second obtuse marginal. PREOPERATIVE DIAGNOSIS: Coronary artery disease. POSTOPERATIVE DIAGNOSIS: Coronary artery disease. ASSISTANTS: 1. Dr. Jefferson Gabriel. 2. Dr. Teddy Mejia. ANESTHESIA: General endotracheal anesthesia. INDICATIONS: The patient is a 64-year-old woman with an extensive peripheral vascular history and a strongly positive family history with at least two first-degree relatives having precipitously from myocardial infarctions in their mid 60s. She recently began having some dyspnea on exertion and stress testing demonstrated inferior ischemia. Cardiac catheterization showed a fairly proximal LAD lesion and a bifurcation lesion in the circumflex system. She also had a long lesion in a small posterolateral branch of the right coronary and preserved left ventricular function, although her EDP was elevated. After discussing treatment options with her as well as technical approaches with respect to target vessels and conduit, she is now taken to the operating room for revascularization. FINDINGS: The saphenous vein was fairly small, being 2 to 3 mm in diameter and was thin-walled. The radial artery was good quality as was the left internal mammary artery. There was extensive hard plaque noted in the distal ascending aorta on the base of the arch. Prior to palpating the aorta, there was an abrupt drop in left hemispheric oxygenation saturations that recovered, but was associated with a significant increase in her blood pressure. Pump time was 95 minutes, cross-clamp time was 68 minutes with the proximal anastomoses being done under cross-clamp, given the disease in her aorta. The LAD was about 2 mm, good quality vessel as was as the first obtuse marginal. The second obtuse marginal was 2.5 or perhaps even 3 mm in diameter, but had scattered islands of plaque and extended out towards the apex. The largest of the posterolateral branches from the right coronary was only about a millimeter or less and it was not grafted. DESCRIPTION OF PROCEDURE: After informed consent was obtained, the patient was taken to the operating room, placed in supine position on the operating table. After the induction of general anesthesia, the patient's left greater saphenous vein was ultrasonographically mapped and marked in the mid thigh and on proximally, it had multiple parallel branches that were all rather small and the areas of confluence were very limited from about the distal third of the thigh on down into the calf, it continued on as a small, but reasonably sized single vein. Her left chest was prepped and draped in sterile fashion. A triple-lumen central line kit was used to place a left subclavian line by the Seldinger technique. All 3 ports easily aspirated and flushed. The line was secured to the skin with suture. The patient's torso, groins, left upper extremity, and bilateral lower extremities were prepped and draped in sterile fashion. An assistant director of public works harvested greater saphenous vein from the distal thigh down to the lower calf using a skin bridge technique. The vein was usable, but of marginal size and quality. Previous experience in an another procedure had already demonstrated that the vein in the right leg was small. The radial artery was exposed at the left wrist. It was isolated and test compression proximally did not change the strength of the palpable pulse in the vessel distally. It was then exposed and isolated in somewhat skeletonized fashion up to near its origin from the brachial artery, the venae communicantes were densely adherent and were very thin walled and they were not stripped away in their entirety in the process of mobilizing the radial artery. It was doubly ligated and divided proximally. There was good back bleeding from it and it was then ligated and divided distally near the wrist. The distal end was cannulated with a blunt-tip irrigating needle and papaverine solution was used to flush it. It was placed in a papaverine soaked sponge in an emesis basin. The attention was returned to the arm. The forearm wound was closed in layers of subcutaneous 2-0 Vicryl and 4-0 Vicryl subcuticular suture. Steri-Strips were applied. The wound was dressed and wrapped. The leg incisions were closed in layers of subcutaneous and subcuticular Vicryl. The radial artery was then distended and adequacy of control of side branches was assessed with a few areas of uncontrolled branches being clipped as well as leak from venae communicantes requiring clipping. The arm was tucked. A median sternotomy was performed. The right pleural space was entered in the performance of the sternotomy. It was repaired with Vicryl. The left pleura was mobilized and the left internal mammary artery was harvested as a skeletonized in-situ graft. The patient was heparinized. The mammary was ligated and divided distally, it was instilled intraluminally with papaverine solution and it dilated nicely with that maneuver and had a strong pulse in it. The mammary bed was inspected for hemostasis. The ELDER retractor was replaced with a Clarke retractor. During the course of dividing the thymic fat pad between its lobes and opening the pericardium, anesthesiologist noted drop in the left hemispheric cerebral oxygen saturations. While this was transient, that drop was associated with an increase in the patient's blood pressure, palpation of the aorta with the systolic blood pressure in the 150 range was inadequate, although it was easy to appreciate that there was hard plaque in the distal ascending aorta. When the pressure was being reduced, the innominate artery was exposed at its origin and the proximal arch was exposed. While the innominate artery felt reasonably soft, plaque extended well into the arch. When the pressure had come down, it could be appreciated that about 2/3 of the ascending aorta at least was soft enough to allow for clamping. A double concentric pursestring of 2-0 Ethibond was placed in the ascending aorta, a little bit proximal to the proximal extent of the plaque in anterior surface of the ascending aorta. A single pursestring was placed in the right atrium at the appendage. An 18-St Lucian aortic cannula was placed and a dual stage venous cannula was placed. They were connected to the cardiopulmonary bypass circuit and cardiopulmonary bypass was instituted. The patient was cooled. The plane between the aorta and the pulmonary artery was developed with the aorta effectively deep pressurized. It was again examined, confirming the original impression of that while low positioning of the cross-clamp would be necessary, would be feasible. The coronaries were examined. A longitudinal slit was made in the pericardium anterior to the left phrenic nerve, through which the mammary could be passed. The aortic cross-clamp was applied and cardioplegia was administered through an aortic root needle. When arrest had been achieved, attention was first turned to the circumflex system after having examined the posterolateral branch of the right and judging it to be too small to be suitable for bypass. The OM1 was exposed and opened with a Garvin blade and Donnie scissors and the best portion of the saphenous vein was used to graft it end-to-side with running 7-0 Prolene suture. Prior to completing the suture line, a 1 mm probe was passed proximally and distally. The probe easily passed through the heel and the toe of the anastomosis, but could not pass into the circumflex proper due to plaque. The anastomosis was secured and tested by flushing cold cardioplegia down the graft. The OM2 was opened and the radial artery was anastomosed to it with running 7-0 Prolene. Because of resumption of cardiac activity during construction of that anastomosis, when it was completed, another dose of antegrade cardioplegia was given through the root needle. The LAD was then opened and the mammary anastomosed to it with running 7-0 Prolene. Additional cardioplegia was given to distend the root and to facilitate myocardial protection during construction of the proximal anastomoses under cross-clamp. An aortotomy was made in the ascending aorta with a scalpel and punch, and the OM1 graft was distended, oriented, trimmed to length, and spatulated. It was anastomosed to that aortotomy end-to-side with running 6-0 Prolene suture. A small dose of cardioplegia was administered as that suture line was being secured. An 11 blade scalpel and Donnie scissors were used to make a longitudinal venotomy in the londono of that proximal anastomosis and then the radial graft to the OM2 was anastomosed there end-to-side. With that suture line frustrated, the radial artery graft was allowed to back bleed and cardioplegia was administered to help flush the aortic root and grafts of air. The bulldog was removed from the mammary pedicle and the suture line was secured. With the patient in Trendelenburg and the root needle back on suction, the cross-clamp was removed. No attempt at de-airing the radial artery or vein grafts was made, and the bulldogs were removed from them. The anastomoses were inspected for hemostasis. A posterior pericardial drain was brought out through a separate incision and secured with suture. Right atrial and right ventricular temporary epicardial pacing wires were placed. A pursestring was placed around the root needle, which was then removed and that pursestring secured. When the cross-clamp had been off for just shy of 20 minutes, contractility was vigorous and she was easily from cardiopulmonary bypass. Aortic and venous cannulae were removed and their purse-string secured. Protamine was administered. When hemostasis was adequate, an anterior mediastinal drain was placed and the grafts were tacked in place across the pulmonary outflow tract. The pericardium was closed with a running Vicryl. The cut surfaces of the sternum were treated with platelet rich GPS and vancomycin paste, and then the sternum was reapproximated with #7 stainless steel wires. Soft tissues were irrigated and treated with platelet poor GPS. The fascia was closed with running #1 Vicryl. Subcutaneous tissue was approximated with running 2-0 Vicryl and the skin was closed with a running 3-0 Vicryl subcuticular suture. The wounds were dressed after treating them with Dermabond, and the patient was taken to the intensive care unit, where she was already beginning to awaken and follow commands with all four extremities. Job ID: [id number]
[2020-06-23 20:22] LABS: #Lymphocytes 0.4 thou/uL (1.20-3.40); #Monocytes 0.7 thou/uL (0.11-0.59); #Neutrophils 7.9 thou/uL (1.40-6.50); %Basophils 0.1 % (0.0-1.0); %Eosinophils 0.2 % (0.0-10.0); %Lymphocytes 4.3 % (21.0-51.0); %Monocytes 7.3 % (0.0-10.0); %Neutrophils 88.1 % (42.0-75.0); Hemoglobin 10.3 g/dL (12.0-16.0); Mean Corpuscular HGB CONC 33.7 g/dL (32.0-36.0); Mean Corpuscular Volume 94.9 fL (78.0-98.0); Mean Platelet Volume 7.5 fL (7.4-10.4); Platelet Count 106 thou/uL (130-400); RBC Distribution Width 12.4 % (11.5-14.5); White Blood Cell (WBC) Count 8.9 thou/uL (4.8-10.8)
[2020-06-23 20:37] LABS: Anion Gap 8 mmol/L (10-20); BUN (Urea Nitrogen) 9 mg/dL (9.8-20.1); Calc. Creatinine Clearance 81 mL/min (70-130); Calcium 6.9 mg/dL (7.8-10.44); Carbon Dioxide 21 mmol/L (23-31); Chloride 113 mmol/L (98-107); Estimated GFR-MDRD 90; Glucose 168 mg/dL (80-115); Potassium 4.3 mmol/L (3.5-5.1); Sodium 138 mmol/L (136-145)
--- NOTE | 2020-06-23 21:14 | CON ---
DATE OF CONSULTATION: 06/23/2020 HISTORY OF PRESENT ILLNESS: Ms. Gurrola is a 64-year-old female who underwent coronary artery bypass grafting today. I was consulted because of her presence in the Critical Care Unit. She started to wake up from her surgery. She is still intubated. PAST MEDICAL HISTORY: Remarkable for; 1. Peripheral vascular disease with history of claudication in the past. 2. History of lipid disorder. 3. History of perforated sigmoid diverticulitis in the past. 4. History of TIA in the past. 5. History of a right axillobifemoral graft in 2009 instead of an aorto-bifem graft because of a colostomy. 6. History of graft thrombosis leading to graft thrombectomy in the left femoral-popliteal bypass. 7. History of an infection grafts leading to removal of a crossover limb in the left femoral-popliteal grafts. 8. History of a thrombectomy in August 2012 with a [id number] right femoral-popliteal bypass. 9. History of brachial thrombo-embolectomy in 2016. 10. History of graft thrombectomy and revision of the distal anastomosis. SOCIAL HISTORY: She is a former smoker. She does not drink. REVIEW OF SYSTEMS: Not obtainable as she is intubated. PHYSICAL EXAMINATION: VITAL SIGNS: FiO2 is at 40%, heart rate is 80, blood pressure 93/59, respiratory rates in the teens. GENERAL: She appears comfortable. HEENT: She makes eye contact. Her sclerae are anicteric. Extraocular movements appear full. NECK: Without lymphadenopathy. LUNGS: Clear. HEART: Regular rhythm. ABDOMEN: Soft and nontender. EXTREMITIES: Warm. IMPRESSION: Status post coronary artery bypass grafting with postop mechanical ventilation. It was anticipated she will wean per protocol. We will follow the other physicians caring for. Her postop hemoglobin is 13.5. Postop electrolytes are unremarkable. Creatinine is 0.6. 70-minute consult, greater than 50% of the time spent on the unit coordinating care. Job ID: [id number] MTDD
[2020-06-23] MEDS: Atorvastatin Calcium 40 MG TAB PO SCH (21:51)
[2020-06-23] MEDS: Insulin Regular 300 UNITS/3 ML VIAL SC PRN (21:52)
[2020-06-24] MEDS: Ketorolac Tromethamine 30 MG/ML VIAL IVP SCH ×4 (00:05→18:14)
[2020-06-24] MEDS: Insulin Regular 300 UNITS/3 ML VIAL SC PRN (00:11)
[2020-06-24] MEDS: Sodium Chloride 0.9% 1,000 ML IV SCH (02:55)
[2020-06-24 04:50] LABS: #Lymphocytes 0.8 thou/uL (1.20-3.40); #Monocytes 0.8 thou/uL (0.11-0.59); #Neutrophils 6.1 thou/uL (1.40-6.50); %Basophils 0.4 % (0.0-1.0); %Eosinophils 0.3 % (0.0-10.0); %Lymphocytes 10.6 % (21.0-51.0); %Monocytes 9.8 % (0.0-10.0); %Neutrophils 78.9 % (42.0-75.0); Hemoglobin 10.2 g/dL (12.0-16.0); Mean Corpuscular HGB CONC 34.4 g/dL (32.0-36.0); Mean Corpuscular Hemoglobin 32.6 pg (27.0-31.0); Mean Corpuscular Volume 94.7 fL (78.0-98.0); Mean Platelet Volume 8.4 fL (7.4-10.4); Platelet Count 115 thou/uL (130-400); RBC Distribution Width 12.4 % (11.5-14.5); Red Blood Cell (RBC) Count 3.14 mill/uL (4.20-5.40); White Blood Cell (WBC) Count 7.7 thou/uL (4.8-10.8)
[2020-06-24 04:56] LABS: Anion Gap 10 mmol/L (10-20); BUN (Urea Nitrogen) 11 mg/dL (9.8-20.1); Calc. Creatinine Clearance 86 mL/min (70-130); Calcium 7.4 mg/dL (7.8-10.44); Carbon Dioxide 21 mmol/L (23-31); Chloride 111 mmol/L (98-107); Estimated GFR-MDRD Greater than 90; Glucose 115 mg/dL (80-115); Potassium 4.1 mmol/L (3.5-5.1); Sodium 138 mmol/L (136-145)
--- NOTE | 2020-06-24 07:44 | RAD ---
Portable frontal chest radiograph: 06/24/2020 COMPARISON: 06/23/2020 HISTORY: Evaluate chest following open heart surgery FINDINGS: The endotracheal tube has been removed. Stable left vascular catheter. Stable drainage cath eters overlie the lower midline mediastinum. Postoperative clips are present within the superior mediastinum to the left of midline and in the right axillary region. There is mild hazy increased den sity in both lung bases, improved when compared to prior imaging. Stable midline sternotomy wires and atherosclerotic calcification of the aortic arch. IMPRESSION: Postoperative changes as detailed above. Improving bibasilar aeration.
[2020-06-24] MEDS: Amoxicillin/Potassium Clav 875 MG TAB PO SCH ×2 (09:30→23:14)
[2020-06-24] MEDS: Aspirin 325 MG TAB PO SCH (09:30)
[2020-06-24] MEDS: Clopidogrel Bisulfate 75 MG TAB PO SCH (09:30)
[2020-06-24] MEDS: Docusate 100 MG CAP PO SCH ×2 (09:30→23:14)
[2020-06-24] MEDS: Lactinex Tablet PO SCH (09:30)
[2020-06-24] MEDS: Lisinopril 5 MG TAB PO SCH (09:31)
[2020-06-24] MEDS: Famotidine/PF 20 mg/2ml Vial SLOW IVP SCH ×2 (09:31→23:13)
--- NOTE | 2020-06-24 13:14 | PRG ---
DATE OF SERVICE: 06/24/2020 SUBJECTIVE: Monique Gurrola is doing well. OBJECTIVE: VITAL SIGNS: Heart rates in the 90s, respiratory rate is 22, oximetry is 92, blood pressure is 97/46. LUNGS: Clear. HEART: Regular rhythm. ABDOMEN: Soft. Intake and outputs -630. Chest tube drainage total was 770 mL since surgery. LABORATORY DATA: Hemoglobin is 10.2, white count 7.7, platelets 115. Electrolytes are unremarkable. IMPRESSION: 1. Status post coronary artery bypass grafting. 2. Severe atherosclerotic vascular disease diffusely with multiple family members, who had had significant vascular issues at early ages. Overall, she appears to be stable. Job ID: [id number]
--- NOTE | 2020-06-24 17:07 | PDOC.CPN ---
- Subjective Date: 06/24/20 Time: 17:05 Interval history: Doing better. off the tube since yesterday. Off levophed since earlier this morning. On my evaluation at noon she had just sat down on the chair for the first time and BP was marginal in the 80's over 50's but felt well. - Review of Systems General: denies: fever/chills, weight/appetite/sleep changes, night sweats, fatigue Respiratory: denies: cough, congestion, shortness of breath, exercise intolerance Cardiovascular: denies: chest pain, palpitation, edema, paroxysmal nocturnal dyspnea, orthopnea Gastrointestinal: denies: nausea, vomiting, diarrhea, constipation, abd pain, GI bleeding Musculoskeletal: denies: pain, tenderness, stiffness, swelling, arthritis/arthralgias Neurological: denies: numbness, syncope, seizure, weakness - Objective Allergies/Adverse Reactions: Allergies Allergy/AdvReac Type Severity Reaction Status Date / Time Iodinated Contrast Media Allergy Mild Hives Verified 06/21/20 15:45 [Iodinated Contrast Media - Oral and] Visit Medications: Current Medications Acetaminophen (Acetaminophen 325 Mg Tab) 650 mg PO Q6H PRN PRN Reason: Headache/Fever Or Mild Pain Hydrocodone Bitart/Acetaminophen (Hydrocodone/Acetaminophen 5/325 Mg Tablet) 1 tab PO Q4H PRN PRN Reason: Moderate Pain (4-6) Last Admin: 06/24/20 09:28 Dose: 1 tab Documented by: Hydrocodone Bitart/Acetaminophen (Hydrocodone/Acetaminophen 5/325 Mg Tablet) 2 tab PO Q4H PRN PRN Reason: Severe Pain (7-10) Acidophilus (Lactinex Tablet) 1 tab PO DAILY [facility] Last Admin: 06/24/20 09:30 Dose: 1 tab Documented by: Al Hydroxide/Mg Hydroxide (Mag-Al 1200 Mg/1200 Mg/30 Ml Udcup) 30 ml PO Q4H PRN PRN Reason: Indigestion Amoxicillin/Clavulanate Potassium (Amoxicillin/Potassium Clav 875 Mg Tab) 875 mg PO Q12HR [facility] Last Admin: 06/24/20 09:30 Dose: 875 mg Documented by: Aspirin (Aspirin 325 Mg Tab) 325 mg PO DAILY [facility] Last Admin: 06/24/20 09:30 Dose: 325 mg Documented by: Atorvastatin Calcium (Atorvastatin Calcium 40 Mg Tab) 80 mg PO HS [facility] Last Admin: 06/23/20 21:51 Dose: 80 mg Documented by: Bisacodyl (Bisacodyl 5 Mg Tab) 10 mg PO Q12H PRN PRN Reason: Constipation Bisacodyl (Bisacodyl 10 Mg Supp) 10 mg [place] Q12H PRN PRN Reason: Constipation Clopidogrel Bisulfate (Clopidogrel Bisulfate 75 Mg Tab) 75 mg PO QAM [facility] Last Admin: 06/24/20 09:30 Dose: 75 mg Documented by: Docusate Sodium (Docusate 100 Mg Cap) 100 mg PO BID [facility] Last Admin: 06/24/20 09:30 Dose: 100 mg Documented by: Famotidine (Famotidine/Pf 20 Mg/2ml Vial) 20 mg SLOW IVP Q12HR [facility] Last Admin: 06/24/20 09:31 Dose: 20 mg Documented by: Fentanyl (Fentanyl 100 Mcg/2 Ml Vial) 25 mcg SLOW IVP Q2H PRN PRN Reason: Moderate Pain (4-6) Stop: 06/25/20 07:41 Fentanyl (Fentanyl 100 Mcg/2 Ml Vial) 50 mcg SLOW IVP Q2H PRN PRN Reason: Severe Pain (7-10) Stop: 06/25/20 07:41 Guaifenesin/Dextromethorphan (Guaifenesin Dm 100-10/5 Ml Udcup) 15 ml PO Q4H PRN PRN Reason: Cough Hydralazine HCl (Hydralazine 20 Mg/Ml Vial) 10 mg SLOW IVP Q6H PRN PRN Reason: To Maintain SBP< 140mmHG Norepinephrine Bitartrate (Levophed) 250 mls @ 0 mls/hr IVPB PRN PRN; Protocol PRN Reason: To maintain SBP > 90 mmHG Last Admin: 06/23/20 19:35 Dose: 250 mls Documented by: Nitroglycerin/Dextrose (Nitroglycerin 50 Mg/250 Ml Bot) 250 mls @ 0 mls/hr IVPB PRN PRN; Protocol PRN Reason: To Maintain SBP< 140mmHG Nicardipine HCl 25 mg/ Sodium (Chloride) 250 mls @ 0 mls/hr IVPB INF PRN; Protocol PRN Reason: To Maintain SBP< 140mmHG Ketorolac Tromethamine (Ketorolac Tromethamine 30 Mg/Ml Vial) 15 mg IVP Q6HR [facility] Stop: 06/26/20 12:01 Last Admin: 06/24/20 14:07 Dose: 15 mg Documented by: Lisinopril (Lisinopril 5 Mg Tab) 5 mg PO BID [facility] Last Admin: 06/24/20 09:31 Dose: Not Given Documented by: Morphine Sulfate (Morphine 2 Mg/Ml Vial) 2 mg SLOW IVP Q15MIN PRN PRN Reason: Severe Pain (7-10) Ondansetron HCl (Ondansetron Pf 4 Mg/2 Ml Vial) 4 mg IVP Q6H PRN PRN Reason: Nausea/Vomiting Potassium Chloride (Potassium Chloride 20 Meq/100 Ml Premix Bag) 20 meq IVPB PRN PRN PRN Reason: K level </= 4.0 Promethazine HCl (Promethazine Hcl 25 Mg/Ml Vial) 6.25 mg IM Q4H PRN PRN Reason: Nausea/Vomiting Sodium Chloride (Flush - Normal Saline 10 Ml Syringe) 10 ml IVF Q12HR [facility] Last Admin: 06/24/20 09:31 Dose: 10 ml Documented by: Vital Signs & Weight: Vital Signs Temp Pulse Pulse Ox 06/24/20 09:31 79 06/24/20 08:00 98 06/24/20 07:10 97 06/24/20 07:00 98.5 F Weight 132 lb 7.965 oz - Physical Exam General: alert & oriented x3 HEENT: mucus membranes moist Neck: supple neck Cardiac: regular rate and rhythm Lungs: clear to auscultation Neuro: no lateralizing findings Abdomen: active bowel sounds Extremities: 1+ LE edema Skin: clear Musculoskeletal: normal range of motion - Labs Result Diagrams: 06/24/20 03:54 06/24/20 03:54 - Telemetry Sinus rhythms and dysrhythmias: sinus rhythm - Assessment/Plan Assessment/Plan: 1. Mutivessel CAD. 2. S/P CABG PLAN: - ASA/Statin for life - BB and ACEI once BP more stable. - PT once tolerated.
[2020-06-24] MEDS ORDERED: Bisacodyl 5 MG TAB PO PRN (19:46)
[2020-06-24] MEDS ORDERED: Zolpidem Tartrate 5 MG TAB PO PRN (19:46)
[2020-06-24] MEDS ORDERED: Bisacodyl 10 MG SUPP PR PRN (19:46)
[2020-06-24] MEDS ORDERED: Mineral Oil ENEMA PR PRN (19:46)
[2020-06-24] MEDS ORDERED: Mag-Al 1200 mg/1200 mg/30 ML UDCUP PO PRN (19:46)
[2020-06-24] MEDS ORDERED: diphenhydrAMINE 25 MG CAP PO PRN (19:46)
[2020-06-24] MEDS ORDERED: Nitroglycerin 0.4 MG TAB (25 Tab Bottle) SL PRN (19:46)
[2020-06-24] MEDS ORDERED: Guaifenesin DM 100-10/5 ML UDCUP PO PRN (19:46)
[2020-06-24] MEDS: HYDROcodone/Acetaminophen 5/325 mg Tablet PO PRN (23:10)
[2020-06-24] MEDS: Atorvastatin Calcium 40 MG TAB PO SCH (23:13)
[2020-06-25] MEDS: HYDROcodone/Acetaminophen 5/325 mg Tablet PO PRN ×3 (04:10→20:01)
[2020-06-25 04:27] LABS: #Eosinphils 0.1 thou/uL (0.0-0.7); #Lymphocytes 1.3 thou/uL (1.20-3.40); #Monocytes 0.8 thou/uL (0.11-0.59); #Neutrophils 5.2 thou/uL (1.40-6.50); %Basophils 0.2 % (0.0-1.0); %Eosinophils 1.5 % (0.0-10.0); %Lymphocytes 17.8 % (21.0-51.0); %Neutrophils 69.4 % (42.0-75.0); Hemoglobin 10.3 g/dL (12.0-16.0); Mean Corpuscular HGB CONC 34.2 g/dL (32.0-36.0); Mean Corpuscular Hemoglobin 32.7 pg (27.0-31.0); Mean Corpuscular Volume 95.6 fL (78.0-98.0); Mean Platelet Volume 8.2 fL (7.4-10.4); Platelet Count 112 thou/uL (130-400); RBC Distribution Width 12.2 % (11.5-14.5); Red Blood Cell (RBC) Count 3.15 mill/uL (4.20-5.40); White Blood Cell (WBC) Count 7.5 thou/uL (4.8-10.8)
[2020-06-25 04:42] LABS: Anion Gap 10 mmol/L (10-20); BUN (Urea Nitrogen) 13 mg/dL (9.8-20.1); Calc. Creatinine Clearance 78 mL/min (70-130); Calcium 8.1 mg/dL (7.8-10.44); Carbon Dioxide 23 mmol/L (23-31); Chloride 106 mmol/L (98-107); Estimated GFR-MDRD 87; Glucose 112 mg/dL (80-115); Potassium 4.1 mmol/L (3.5-5.1); Sodium 135 mmol/L (136-145)
--- NOTE | 2020-06-25 08:04 | RAD ---
RADIOGRAPH CHEST 1 VIEW: DATE: 06/25/2020 TIME: 2:56 AM HISTORY: 64-year-old female status post CABG COMPARISON: 06/24/2020 FINDINGS: Small left pleural effusion. Mild haziness at bilateral lower lobe lung bases. Subsegmental atelectas is at right base. No cardiomegaly. Left subclavian central line. Sternotomy wires. No pneumothorax. Lower midline mediastinal tubes. No interval change overall. IMPRESSION: 1. Recently status post coronary bypass graft surgery. 2. Small left pleural effusion and mild pulmonary parenchymal changes at the lung bases. 3. No interval change.
[2020-06-25] MEDS: Famotidine/PF 20 mg/2ml Vial SLOW IVP SCH ×2 (09:35→20:03)
[2020-06-25] MEDS: Aspirin 81 mg Enteric Coated Tablet PO SCH (09:35)
[2020-06-25] MEDS: Docusate 100 MG CAP PO SCH ×2 (09:35→20:02)
[2020-06-25] MEDS: Amoxicillin/Potassium Clav 875 MG TAB PO SCH ×2 (09:35→20:00)
[2020-06-25] MEDS: Clopidogrel Bisulfate 75 MG TAB PO SCH (09:35)
[2020-06-25] MEDS: Lactinex Tablet PO SCH (09:35)
--- NOTE | 2020-06-25 13:15 | PDOC.CPN ---
- Subjective Date: 06/25/20 Time: 13:14 Interval history: She is doing much better. She is about to get her chest tubes out. No BM but passing gas. - Review of Systems General: denies: fever/chills, weight/appetite/sleep changes, night sweats, fatigue Respiratory: denies: cough, congestion, shortness of breath, exercise intoleran ce Cardiovascular: denies: chest pain, palpitation, edema, paroxysmal nocturnal dyspnea, orthopnea Gastrointestinal: denies: nausea, vomiting, diarrhea, constipation, abd pain, GI bleeding Musculoskeletal: denies: pain, tenderness, stiffness, swelling, arthritis/arthralgias Neurological: denies: numbness, syncope, seizure, weakness - Objective Allergies/Adverse Reactions: Allergies Allergy/AdvReac Type Severity Reaction Status Date / Time Iodinated Contrast Media Allergy Mild Hives Verified 06/21/20 15:45 [Iodinated Contrast Media - Oral and] Visit Medications: Current Medications Hydrocodone Bitart/Acetaminophen (Hydrocodone/Acetaminophen 5/325 Mg Tablet) 1 tab PO Q4H PRN PRN Reason: Moderate Pain (4-6) Last Admin: 06/24/20 09:28 Dose: 1 tab Documented by: Hydrocodone Bitart/Acetaminophen (Hydrocodone/Acetaminophen 5/325 Mg Tablet) 2 tab PO Q4H PRN PRN Reason: Severe Pain (7-10) Last Admin: 06/25/20 11:58 Dose: 2 tab Documented by: Acidophilus (Lactinex Tablet) 1 tab PO DAILY [facility] Last Admin: 06/25/20 09:35 Dose: 1 tab Documented by: Al Hydroxide/Mg Hydroxide (Mag-Al 1200 Mg/1200 Mg/30 Ml Udcup) 30 ml PO Q4H PRN PRN Reason: Indigestion Amoxicillin/Clavulanate Potassium (Amoxicillin/Potassium Clav 875 Mg Tab) 875 mg PO Q12HR [facility] Last Admin: 06/25/20 09:35 Dose: 875 mg Documented by: Aspirin (Aspirin 81 Mg Enteric Coated Tablet) 81 mg PO DAILY [facility] Last Admin: 06/25/20 09:35 Dose: 81 mg Documented by: Atorvastatin Calcium (Atorvastatin Calcium 40 Mg Tab) 80 mg PO HS [facility] Last Admin: 06/24/20 23:13 Dose: 80 mg Documented by: Bisacodyl (Bisacodyl 5 Mg Tab) 10 mg PO Q12H PRN PRN Reason: Constipation Bisacodyl (Bisacodyl 10 Mg Supp) 10 mg NC Q12H PRN PRN Reason: Constipation Clopidogrel Bisulfate (Clopidogrel Bisulfate 75 Mg Tab) 75 mg PO QAM [facility] Last Admin: 06/25/20 09:35 Dose: 75 mg Documented by: Diphenhydramine HCl (Diphenhydramine 25 Mg Cap) 25 mg PO Q6H PRN PRN Reason: Itching & Insomnia or Jamshid Jaspal Docusate Sodium (Docusate 100 Mg Cap) 100 mg PO BID [facility] Last Admin: 06/25/20 09:35 Dose: 100 mg Documented by: Famotidine (Famotidine/Pf 20 Mg/2ml Vial) 20 mg SLOW IVP Q12HR [facility] Last Admin: 06/25/20 09:35 Dose: 20 mg Documented by: Guaifenesin/Dextromethorphan (Guaifenesin Dm 100-10/5 Ml Udcup) 15 ml PO Q4H PRN PRN Reason: Cough Mineral Oil (Mineral Oil Enema) 133 ml NC DAILYPRN PRN PRN Reason: Constipation Nitroglycerin (Nitroglycerin 0.4 Mg Tab (25 Tab Bottle)) 0.4 mg SL Q5MIN PRN PRN Reason: Chest Pain Ondansetron HCl (Ondansetron Pf 4 Mg/2 Ml Vial) 4 mg IVP Q6H PRN PRN Reason: Nausea/Vomiting Sodium Chloride (Flush - Normal Saline 10 Ml Syringe) 10 ml IVF Q12HR [facility] Last Admin: 06/25/20 09:36 Dose: 10 ml Documented by: Zolpidem Tartrate (Zolpidem Tartrate 5 Mg Tab) 5 mg PO HSPRN PRN PRN Reason: Insomnia Vital Signs & Weight: Vital Signs Temp Pulse Pulse Pulse Resp BP BP 06/25/20 12:13 95 18 06/25/20 08:52 110 H 102 H 127/56 L 152/65 H 06/25/20 08:00 97.8 F 91 16 06/25/20 04:00 97.7 F 89 16 BP Pulse Ox Pulse Ox Pulse Ox 06/25/20 12:13 108/56 L 94 L 06/25/20 08:52 93 L 92 L 06/25/20 08:00 116/57 L 93 L 06/25/20 04:00 91/53 L 93 L Weight 142 lb 3 oz - Physical Exam General: alert & oriented x3 HEENT: mucus membranes moist Neck: supple neck Cardiac: regular rate and rhythm Neuro: grossly intact Abdomen: active bowel sounds Extremities: 1+ LE edema Skin: clear Musculoskeletal: normal range of motion - Labs Result Diagrams: 06/25/20 03:53 06/25/20 03:53 - Telemetry Sinus rhythms and dysrhythmias: sinus rhythm - Assessment/Plan Assessment/Plan: 1. Mutivessel CAD. 2. S/P CABG x 3, DAILY to LAD, SVG to OM1 and free radial to OM2. 3. Severe PVD 4. Hx of CVA 5. Moderate carotid disease. PLAN: - ASA/Statin for life - Will start low murry BB. - Advance PT as tolerated.
[2020-06-25] MEDS: Atorvastatin Calcium 40 MG TAB PO SCH (20:00)
[2020-06-25] MEDS: Metoprolol Tartrate 25 MG TAB PO SCH (20:02)
[2020-06-26 04:36] LABS: #Eosinphils 0.1 thou/uL (0.0-0.7); #Lymphocytes 1.1 thou/uL (1.20-3.40); #Monocytes 0.9 thou/uL (0.11-0.59); #Neutrophils 6.6 thou/uL (1.40-6.50); %Basophils 0.3 % (0.0-1.0); %Eosinophils 1.4 % (0.0-10.0); %Monocytes 10.2 % (0.0-10.0); %Neutrophils 75.1 % (42.0-75.0); Hemoglobin 10.5 g/dL (12.0-16.0); Mean Corpuscular HGB CONC 34.8 g/dL (32.0-36.0); Mean Corpuscular Hemoglobin 32.8 pg (27.0-31.0); Mean Corpuscular Volume 94.3 fL (78.0-98.0); Mean Platelet Volume 8.2 fL (7.4-10.4); Platelet Count 132 thou/uL (130-400); RBC Distribution Width 12.1 % (11.5-14.5); White Blood Cell (WBC) Count 8.8 thou/uL (4.8-10.8)
[2020-06-26 04:58] LABS: Anion Gap 8 mmol/L (10-20); BUN (Urea Nitrogen) 14 mg/dL (9.8-20.1); Calc. Creatinine Clearance 82 mL/min (70-130); Calcium 8.5 mg/dL (7.8-10.44); Carbon Dioxide 24 mmol/L (23-31); Chloride 105 mmol/L (98-107); Estimated GFR-MDRD 84; Glucose 104 mg/dL (80-115); Potassium 4.4 mmol/L (3.5-5.1); Sodium 133 mmol/L (136-145)
[2020-06-26] MEDS ORDERED: Sodium Chloride 0.9% 10 ML ONE (08:09)
[2020-06-26] MEDS: Lactinex Tablet PO SCH (08:18)
[2020-06-26] MEDS: Aspirin 81 mg Enteric Coated Tablet PO SCH (08:18)
[2020-06-26] MEDS: Amoxicillin/Potassium Clav 875 MG TAB PO SCH ×2 (08:18→21:28)
[2020-06-26] MEDS: Docusate 100 MG CAP PO SCH ×2 (08:18→21:28)
[2020-06-26] MEDS: Potassium Chloride 10 MEQ TAB PO SCH (08:18)
[2020-06-26] MEDS: Clopidogrel Bisulfate 75 MG TAB PO SCH (08:18)
[2020-06-26] MEDS: HYDROcodone/Acetaminophen 5/325 mg Tablet PO PRN ×2 (08:19→21:27)
[2020-06-26] MEDS: Metoprolol Tartrate 25 MG TAB PO SCH ×2 (08:20→21:29)
[2020-06-26] MEDS: Furosemide 40 MG TAB PO SCH (08:21)
[2020-06-26] MEDS: Atorvastatin Calcium 40 MG TAB PO SCH (21:28)
[2020-06-27] MEDS: Aspirin 81 mg Enteric Coated Tablet PO SCH (08:55)
[2020-06-27] MEDS: Lactinex Tablet PO SCH (08:55)
[2020-06-27] MEDS: Amoxicillin/Potassium Clav 875 MG TAB PO SCH (08:56)
[2020-06-27] MEDS: Metoprolol Tartrate 25 MG TAB PO SCH (08:56)
[2020-06-27] MEDS: Clopidogrel Bisulfate 75 MG TAB PO SCH (08:56)
[2020-06-27] MEDS: HYDROcodone/Acetaminophen 5/325 mg Tablet PO PRN (08:58)
[2020-06-27] MEDS: Furosemide 40 MG TAB PO SCH (09:00)
[2020-06-27] MEDS: Potassium Chloride 10 MEQ TAB PO SCH (09:00)
[2020-06-27] MEDS: Docusate 100 MG CAP PO SCH (09:01)
--- NOTE | 2020-06-27 10:23 | DIS ---
DATE OF ADMISSION: 06/23/2020 DATE OF DISCHARGE: 06/27/2020 DIAGNOSES: 1. Coronary artery disease. 2. Peripheral vascular disease. 3. Hypertension. 4. Gastroesophageal reflux disease. 5. Dyslipidemia. 6. History of diastolic heart failure. PROCEDURES: Coronary artery bypass grafting x3 - left internal mammary to left anterior descending, saphenous vein to obtuse marginal, and left radial artery to second obtuse marginal. DESCRIPTION OF HOSPITAL STAY: Ms. Gurrola was brought in for elective coronary artery bypass grafting. She has done well postoperatively. She has had no rhythm disturbances. At the time of discharge, she is ambulatory, tolerating regular diet, having good bowel and bladder function. Incisions are clean and dry without evidence of infection. DISCHARGE MEDICATIONS: 1. Aspirin 81 mg daily. 2. Plavix 75 mg daily. 3. Lipitor 80 mg at bedtime. 4. Metoprolol 12.5 mg b.i.d. 5. [place] 5/325 one to two q.6 hours p.r.n. pain. FOLLOWUP: Follow up is with Dr. Torres in [address] Hudson in a month. Job ID: [id number]
[2020-06-27 11:38] VITALS: TEMP 98
[2020-06-27 12:02] VITALS: BP 115/55
== END 2020-06-27 13:30 | disposition home or self-care (01) | DRG 236 ==
LOC: SURG A 06-23 05:58 → CCU 06-23 14:03 → 2NO 06-24 19:04
PROVIDERS: ADMIT Thoracic Surgery (Cardiothoracic Vascular Surgery); ATTEND Thoracic Surgery (Cardiothoracic Vascular Surgery)
PROC: 02100Z9 Bypass Coronary Artery, One Artery from Left Internal Mammary, Open Approach (ICD-10-PCS; principal; 2020-06-23)
PROC: 021109W Bypass Coronary Artery, Two Arteries from Aorta with Autologous Venous Tissue, Open Approach (ICD-10-PCS; 2020-06-23)
PROC: 06BQ4ZZ Excision of Left Saphenous Vein, Percutaneous Endoscopic Approach (ICD-10-PCS; 2020-06-23)
PROC: 5A1221Z Performance of Cardiac Output, Continuous (ICD-10-PCS; 2020-06-23)
DX: I25.10 Atherosclerotic heart disease of native coronary artery without angina pectoris (principal); K57.20 Diverticulitis of large intestine with perforation and abscess without bleeding; I75.021 Atheroembolism of right lower extremity; I50.32 Chronic diastolic (congestive) heart failure; E78.00 Pure hypercholesterolemia, unspecified; I99.8 Other disorder of circulatory system; I65.8 Occlusion and stenosis of other precerebral arteries; I70.223 Atherosclerosis of native arteries of extremities with rest pain, bilateral legs; K21.9 Gastro-esophageal reflux disease without esophagitis; I11.0 Hypertensive heart disease with heart failure; Z79.82 Long term (current) use of aspirin; Z79.899 Other long term (current) drug therapy; Z95.1 Presence of aortocoronary bypass graft; Z93.3 Colostomy status; Z90.49 Acquired absence of other specified parts of digestive tract; Z87.891 Personal history of nicotine dependence
CPT/HCPCS: 36415; 36416; 36430; 71045; 71046; 80048; 82805; 85025; 85610; 85730; 86850; 86900; 86901; 93005; 93010; 93798; 94002; 94150; 97139; J0690; J1644; J1815; J1885; J2001; J2150; J2250; J2440; J2704; J3010; J3370; J3480; J3490; P9045; P9047; S0017; S0028

== ENCOUNTER 2020-07-21 14:13 | Emergency (ER) | payer MEDICARE, OTHER ==
[2020-07-21 15:14] LABS: #Basophils 0.1 thou/uL (0.0-0.2); #Eosinphils 0.4 thou/uL (0.0-0.7); #Lymphocytes 1.4 thou/uL (1.20-3.40); #Monocytes 0.8 thou/uL (0.11-0.59); #Neutrophils 3.7 thou/uL (1.40-6.50); %Basophils 0.8 % (0.0-1.0); %Lymphocytes 21.7 % (21.0-51.0); %Monocytes 12.3 % (0.0-10.0); %Neutrophils 59.1 % (42.0-75.0); Hemoglobin 14.5 g/dL (12.0-16.0); Mean Corpuscular HGB CONC 31.8 g/dL (32.0-36.0); Mean Corpuscular Hemoglobin 30.7 pg (27.0-31.0); Mean Corpuscular Volume 96.4 fL (78.0-98.0); Mean Platelet Volume 7.6 fL (7.4-10.4); Platelet Count 212 thou/uL (130-400); RBC Distribution Width 12.9 % (11.5-14.5); Red Blood Cell (RBC) Count 4.74 mill/uL (4.20-5.40); White Blood Cell (WBC) Count 6.3 thou/uL (4.8-10.8)
[2020-07-21 15:38] LABS: ALT (SGPT) Less than 7 U/L (8-55); AST (SGOT) 13 U/L (5-34); Alkaline Phosphatase 110 U/L (40-110); Anion Gap 13 mmol/L (10-20); BUN (Urea Nitrogen) 11 mg/dL (9.8-20.1); Bilirubin, Total 0.4 mg/dL (0.2-1.2); Calc. Creatinine Clearance 0 mL/min (70-130); Calcium 9.2 mg/dL (7.8-10.44); Carbon Dioxide 26 mmol/L (23-31); Chloride 105 mmol/L (98-107); Estimated GFR-MDRD 81; Globulin 2.7 g/dL (2.4-3.5); Glucose 95 mg/dL (80-115); Potassium 3.6 mmol/L (3.5-5.1); Protein, Total 6.7 g/dL (6.0-8.3); Sodium 140 mmol/L (136-145)
== END 2020-07-21 16:01 | disposition home or self-care (01) ==
LOC: ERS 14:13
DX: T81.31XA Disruption of external operation (surgical) wound, not elsewhere classified, initial encounter (principal); E78.5 Hyperlipidemia, unspecified; I10 Essential (primary) hypertension; Z79.899 Other long term (current) drug therapy
CPT/HCPCS: 36415; 80053; 83605; 85025; 87040; 99283

== ENCOUNTER 2021-06-03 07:41 | Outpatient (CLI) | payer MEDICARE, OTHER ==
[2021-06-03] MEDS ORDERED: Iopamidol 370 76% 100 ML VIAL ONE (10:47)
== END 2021-06-03 07:42 | disposition home or self-care (01) ==
LOC: CT 07:41
PROVIDERS: ATTEND Thoracic Surgery (Cardiothoracic Vascular Surgery)
DX: I70.302 Unspecified atherosclerosis of unspecified type of bypass graft(s) of the extremities, left leg (principal)
CPT/HCPCS: 75635; 82565; Q9967

== ENCOUNTER 2022-12-27 19:05 | Inpatient (IN) | payer MEDICARE, OTHER ==
[2022-12-27 23:35] VITALS: BMI 22.7
[2022-12-28] MEDS ORDERED: Acetaminophen 650 MG Suppository PR PRN (00:36)
[2022-12-28] MEDS ORDERED: Ondansetron PF 4 MG/2 ML Vial IVP PRN (00:36)
[2022-12-28] MEDS ORDERED: Ondansetron ODT 4 MG TAB PO PRN (00:36)
[2022-12-28] MEDS ORDERED: Acetaminophen 325 MG TAB PO PRN (00:36)
[2022-12-28] MEDS ORDERED: hydrALAZINE 20 MG/ML VIAL SLOW IVP PRN (00:36)
[2022-12-28 05:46] LABS: #Eosinphils 0.2 thou/uL (0.0-0.7); #Lymphocytes 2.1 thou/uL (1.20-3.40); #Monocytes 0.6 thou/uL (0.11-0.59); #Neutrophils 2.9 thou/uL (1.40-6.50); %Basophils 0.5 % (0.0-1.0); %Lymphocytes 35.4 % (21.0-51.0); %Monocytes 10.5 % (0.0-10.0); %Neutrophils 49.6 % (42.0-75.0); Hemoglobin 16.5 g/dL (12.0-16.0); Mean Corpuscular HGB CONC 34.1 g/dL (32.0-36.0); Mean Corpuscular Hemoglobin 32.9 pg (27.0-31.0); Mean Corpuscular Volume 96.4 fl (78.0-98.0); Mean Platelet Volume 8.4 fL (7.4-10.4); Platelet Count 152 10x3/uL (130-400); White Blood Cell (WBC) Count 5.8 10x3/uL (4.8-10.8)
[2022-12-28 06:18] LABS: Anion Gap 16 mmol/L (10-20); BUN (Urea Nitrogen) 10 mg/dL (9.8-20.1); Calc. Creatinine Clearance 64 mL/min (70-130); Calcium 9.4 mg/dL (7.8-10.44); Carbon Dioxide 20 mmol/L (23-31); Cardiac Risk 3.6 (Less than 4.5); Chloride 106 mmol/L (98-107); Cholesterol 142 mg/dl (< 200 Desired); Estimated GFR 91; Glucose 92 mg/dL (80-115); HDL Cholesterol 39 mg/dL (>60 Neg Risk); LDL Cholesterol, Calculated 75 mg/dL; Potassium 3.9 mmol/L (3.5-5.1); Sodium 138 mmol/L (136-145); Triglycerides 140 mg/dL (Less than 150)
[2022-12-28] MEDS ORDERED: Aspirin 81 mg Enteric Coated Tablet PO SCH (09:00)
[2022-12-28] MEDS: Aspirin Chewable 81 MG TAB PO SCH (09:23)
[2022-12-28] MEDS: Metoprolol Tartrate 25 MG TAB PO SCH ×2 (09:23→21:25)
[2022-12-28] MEDS: Clopidogrel Bisulfate 75 MG TAB PO SCH (09:23)
[2022-12-28] MEDS ORDERED: Atorvastatin Calcium 40 MG TAB PO SCH (21:00)
[2022-12-29 06:18] LABS: #Basophils 0.1 thou/uL (0.0-0.2); #Eosinphils 0.2 thou/uL (0.0-0.7); #Monocytes 0.6 thou/uL (0.11-0.59); #Neutrophils 3.3 thou/uL (1.40-6.50); %Basophils 0.8 % (0.0-1.0); %Monocytes 9.8 % (0.0-10.0); %Neutrophils 54.4 % (42.0-75.0); Hemoglobin 16.4 g/dL (12.0-16.0); Mean Corpuscular HGB CONC 33.3 g/dL (32.0-36.0); Mean Corpuscular Hemoglobin 31.9 pg (27.0-31.0); Mean Corpuscular Volume 95.9 fl (78.0-98.0); Mean Platelet Volume 8.1 fL (7.4-10.4); Platelet Count 162 10x3/uL (130-400); Red Blood Cell (RBC) Count 5.13 mill/uL (4.20-5.40); White Blood Cell (WBC) Count 6.1 10x3/uL (4.8-10.8)
[2022-12-29 06:46] LABS: ALT (SGPT) 11 U/L (8-55); AST (SGOT) 17 U/L (5-34); Alkaline Phosphatase 73 U/L (40-110); Anion Gap 12 mmol/L (10-20); BUN (Urea Nitrogen) 15 mg/dL (9.8-20.1); Bilirubin, Total 0.5 mg/dL (0.2-1.2); Calc. Creatinine Clearance 63 mL/min (70-130); Calcium 9.5 mg/dL (7.8-10.44); Carbon Dioxide 22 mmol/L (23-31); Chloride 106 mmol/L (98-107); Estimated GFR 88; Globulin 2.5 g/dL (2.4-3.5); Glucose 100 mg/dL (80-115); Potassium 4.2 mmol/L (3.5-5.1); Protein, Total 6.5 g/dL (5.8-8.1); Sodium 136 mmol/L (136-145)
[2022-12-29] MEDS: Clopidogrel Bisulfate 75 MG TAB PO SCH (09:40)
[2022-12-29] MEDS: Metoprolol Tartrate 25 MG TAB PO SCH (09:40)
[2022-12-29] MEDS: Aspirin Chewable 81 MG TAB PO SCH (09:40)
[2022-12-29] MEDS ORDERED: Lidocaine 1% w/Epinephrine 1:100K 20 ML VIAL ONE (13:20)
[2022-12-29 15:34] VITALS: BP 129/58; TEMP 98
== END 2022-12-29 17:45 | disposition home or self-care (01) | DRG 42 ==
LOC: ERS 19:05 → NEURO 20:53 → OBSVTOIN 12-28 15:57
PROVIDERS: ADMIT Student in an Organized Health Care Education/Training Program; ATTEND Internal Medicine
PROC: 0JH602Z Insertion of Monitoring Device into Chest Subcutaneous Tissue and Fascia, Open Approach (ICD-10-PCS; principal; 2022-12-29)
DX: I63.9 Cerebral infarction, unspecified (principal); E78.5 Hyperlipidemia, unspecified; I16.0 Hypertensive urgency; Z86.73 Personal history of transient ischemic attack (TIA), and cerebral infarction without residual deficits; Z98.890 Other specified postprocedural states; Z95.1 Presence of aortocoronary bypass graft; Z86.718 Personal history of other venous thrombosis and embolism; Z88.8 Allergy status to other drugs, medicaments and biological substances; Z79.899 Other long term (current) drug therapy; Z79.82 Long term (current) use of aspirin; Z90.49 Acquired absence of other specified parts of digestive tract; I10 Essential (primary) hypertension
CPT/HCPCS: 33285; 36415; 70450; 70551; 80048; 80053; 80061; 83036; 83880; 84443; 84484; 85025; 93005; 93306; 93880; 96374; C1764; G0378; J0360

== ENCOUNTER 2022-12-27 19:07 | Emergency (ER) | payer MEDICARE, OTHER ==
[2022-12-27 19:37] LABS: #Basophils 0.2 thou/uL (0.0-0.2); #Eosinphils 0.2 thou/uL (0.0-0.7); #Lymphocytes 2.4 thou/uL (1.20-3.40); #Monocytes 0.6 thou/uL (0.11-0.59); #Neutrophils 4.2 thou/uL (1.40-6.50); %Basophils 2.1 % (0.0-1.0); %Eosinophils 3.2 % (0.0-10.0); %Lymphocytes 31.6 % (21.0-51.0); %Monocytes 8.3 % (0.0-10.0); Hemoglobin 17.5 g/dL (12.0-16.0); Mean Corpuscular HGB CONC 34.2 g/dL (32.0-36.0); Mean Corpuscular Hemoglobin 32.9 pg (27.0-31.0); Mean Corpuscular Volume 96.1 fl (78.0-98.0); Mean Platelet Volume 7.8 fL (7.4-10.4); Platelet Count 164 10x3/uL (130-400); RBC Distribution Width 12.1 % (11.5-14.5); Red Blood Cell (RBC) Count 5.32 mill/uL (4.20-5.40); White Blood Cell (WBC) Count 7.6 10x3/uL (4.8-10.8)
[2022-12-27] MEDS ORDERED: hydrALAZINE 20 MG/ML VIAL ONE (19:49)
[2022-12-27 19:58] LABS: ALT (SGPT) 13 U/L (8-55); AST (SGOT) 20 U/L (5-34); Albumin 4.5 g/dL (3.4-4.8); Alkaline Phosphatase 85 U/L (40-110); Anion Gap 15 mmol/L (10-20); BUN (Urea Nitrogen) 10 mg/dL (9.8-20.1); Bilirubin, Total 0.8 mg/dL (0.2-1.2); Calc. Creatinine Clearance 0 mL/min (70-130); Calcium 10.1 mg/dL (7.8-10.44); Carbon Dioxide 24 mmol/L (23-31); Chloride 103 mmol/L (98-107); Estimated GFR 69; Globulin 2.8 g/dL (2.4-3.5); Glucose 113 mg/dL (80-115); Protein, Total 7.3 g/dL (5.8-8.1); Sodium 138 mmol/L (136-145)
== END 2022-12-27 21:59 | disposition short-term general hospital (02) ==
LOC: ERS 19:07
DX: I16.9 Hypertensive crisis, unspecified (principal); G45.9 Transient cerebral ischemic attack, unspecified; E78.5 Hyperlipidemia, unspecified; I10 Essential (primary) hypertension; Z79.899 Other long term (current) drug therapy
CPT/HCPCS: 70450; 80053; 83880; 84484; 85025; 93005; 96374; 99285; J0360; 36415

== ENCOUNTER 2024-03-18 09:50 | Outpatient (CLI) | payer MEDICARE, OTHER | END 2024-03-18 09:51 | disposition home or self-care (01) | LOC: BICMAMMO 09:50 | PROVIDERS: ATTEND Family Medicine | DX: Z12.31 Encounter for screening mammogram for malignant neoplasm of breast (principal); Z13.820 Encounter for screening for osteoporosis; Z78.0 Asymptomatic menopausal state; M81.0 Age-related osteoporosis without current pathological fracture; M85.89 Other specified disorders of bone density and structure, multiple sites | CPT/HCPCS: 77063; 77067; 77080 ==

== ENCOUNTER 2024-09-29 11:52 | Emergency (ER) | payer MEDICARE, OTHER ==
[2024-09-29] MEDS ORDERED: Dexamethasone 10 MG/ML VIAL ONE (14:30)
== END 2024-09-29 14:46 | disposition home or self-care (01) ==
LOC: ERS 11:52
DX: J06.9 Acute upper respiratory infection, unspecified (principal); I10 Essential (primary) hypertension; E78.00 Pure hypercholesterolemia, unspecified; Z79.899 Other long term (current) drug therapy; Z79.01 Long term (current) use of anticoagulants; Z87.891 Personal history of nicotine dependence
CPT/HCPCS: 71045; 87428; J1100